=== PATIENT | male | born 1945 | race Caucasian/White ===

== ENCOUNTER 2017-08-21 17:46 | Inpatient (IN) | payer MEDICARE, BC ==
[2017-08-21] MEDS ORDERED: Ondansetron 4 MG/2 ML SDV IVPUSH ONE (17:51)
[2017-08-21] MEDS ORDERED: Famotidine 20 MG/2 ML SDV IVPUSH ONE (17:51)
[2017-08-21] MEDS ORDERED: Pantoprazole 40 MG Vial IVPUSH ONE (17:51)
--- NOTE | 2017-08-21 17:51 | EDM.PDOC ---
ED HPI GENERAL MEDICAL PROBLEM - General Chief Complaint: Gastrointestinal Problem Stated Complaint: Nauea/vomiting, fever Time Seen by Provider: 08/21/17 17:51 Source of Information: Reports: Patient, EMS, EMS Notes Reviewed, Family () , Correction Records (Limited), Old Records ([facility] chart/EMR) History Limitations: Reports: Altered Mental Status - History of Present Illness INITIAL COMMENTS - FREE TEXT/NARRATIVE: Patient was brought to the emergency room via basic ambulance transfer from [facility] for evaluation of progressive nausea and fever since about 09:30 hours this morning. Patient apparently had 1-1/2 tablets of Tylenol prior to arrival with large emesis in route. The patient is an extremely poor historian secondary to his previous CVA and organic brain syndrome. Patient did have some minor exacerbation of his chronic headaches earlier this morning, however this was resolved with earlier Tylenol. He denies any pain at this time. Apparent normal bowel movement earlier this morning by his history. Only limited records from [place] [facility] available. The patient denies any chest pain/ pressure, heart flutter, orthostasis, orthopnea, diaphoresis, paresthesias, recent decreased exercise tolerance, or any other anginal-type symptoms. No recent history of abdominal pain, heartburn, diarrhea, melena, gross hematochezia, or any food intolerance, including fatty foods, etc.. The patient also denies any recent aspiration, cough, wheezing, dyspnea, etc.. No history of current headaches, visual changes, diplopia, change in mental status, or other change in neurological status with stable left hemiparesis at this time. Symptoms started shortly after physical therapy this morning with no history of fall or injury. Onset: Today, Gradual Onset Date: 08/21/17 Onset Time: 09:30 Duration: Getting Worse, Intermittent Location: Reports: Other (No pain) Improves with: Reports: None Worsens with: Reports: None Context: Reports: Other (As above). Denies: Sick Contact, Trauma Associated Symptoms: Reports: Confusion (Stable chronic), Fever/Chills, Headaches (Earlier today as above), Nausea/Vomiting, Weakness (Stable chronic left hemiparesis). Denies: Chest Pain, Cough, cough w sputum, Diaphoresis, Loss of Appetite, Malaise, Seizure, Shortness of Breath, Syncope Treatments CHIEF MATE: Reports: Acetaminophen - Related Data Allergies Allergy/AdvReac Type Severity Reaction Status Date / Time Penicillins Allergy Cannot Verified 08/21/17 19:05 Remember povidone-iodine Allergy Cannot Verified 08/21/17 19:05 [From Betadine] Remember soap [From Betadine] Allergy Cannot Verified 08/21/17 19:05 Remember tramadol Allergy Cannot Verified 08/21/17 19:05 Remember Home Meds: Home Meds Acetaminophen 650 mg PO Q4H PRN 08/21/17 [History] Acetaminophen [Tylenol] 650 mg PO BID@,18 08/21/17 [History] Aspirin [Ecotrin] 325 mg PO DAILY 08/21/17 [History] Dextran 70/Hypromellose [Artificial Tears] 2 drop EYEBOTH QID PRN 08/21/17 [ History] Donepezil HCl [Aricept] 10 mg PO DAILY 08/21/17 [History] LORazepam [Ativan] 0.5 mg IM DAILY PRN 08/21/17 [History] Lisinopril 10 mg PO DAILY 08/21/17 [History] Loratadine [Claritin] 10 mg PO DAILY 08/21/17 [History] Menthol/Zinc Oxide [Calmoseptine] 1 applic TOP BID PRN 08/21/17 [History] Miconazole Nitrate [Athlete's Foot] 1 applic TOP BID PRN 08/21/17 [History] Multivitamin [Daily Multiple Vitamin] 1 tab PO DAILY 08/21/17 [History] OXcarbazepine [Trileptal] 450 mg PO BID@,08/21/17 [History] Trolamine Salicylate [Asper-Flex] 1 applic TOP Q4H PRN 08/21/17 [History] atorvaSTATin [Lipitor] 10 mg PO DAILY@1800 08/21/17 [History] levETIRAcetam [Keppra] 1,500 mg PO BID@,08/21/17 [History] Past Medical History HEENT History: Reports: Allergic Rhinitis, Cataract, Impaired Vision, Other ( See Below). Denies: Glaucoma, Hard of Hearing, Macular Degeneration, Retinal Detachment Other HEENT History: Dry eye syndrome. Patient wears glasses. Nasal fracture as below. Cardiovascular History: Reports: High Cholesterol, Hypertension, Other (See Below). Denies: Afib, Aneurysm, Arrhythmia, Blood Clots/VTE/DVT, Bypass, CAD, Heart Failure, Heart Murmur, LA, Pacemaker, PTCA, PVD, Stents, Syncope Other Cardiovascular History: Mixed hyperlipidemia Respiratory History: Reports: Bronchitis, Recurrent, COPD, Intubation, Previous , Pulmonary Fibrosis. Denies: Asthma, PE, Pneumothorax, Sleep Apnea, TB Gastrointestinal History: Reports: Colon Polyp, Gastritis, GERD, Hiatal Hernia, Other (See Below). Denies: Bowel Obstruction, Celiac Disease, Cholelithiasis, Chronic Constipation, Chronic Diarrhea, Diverticulosis, Fecal Incontinence, GI Bleed, Hepatitis, Inflammatory Bowel Disease, Irritable Bowel Syndrome, Jaundice , Pancreatitis, PUD Other Gastrointestinal History: Tubular adenoma in the sigmoid colon area esophagitis Genitourinary History: Reports: BPH, Chronic Renal Insuffiency, UTI, Recurrent. Denies: Acute Renal Failure, Renal Calculus, STD, Urinary Incontinence Musculoskeletal History: Reports: Arthritis, Back Pain, Chronic, Fracture, Osteoarthritis, Other (See Below). Denies: Amputation, Gout, Neck Pain, Chronic , Osteoporosis, RA, SLE Other Musculoskeletal History: Nasal fracture in the Neurological History: Reports: Alzheimers Disease, Brain Injury, CVA, Seizure, Other (See Below). Denies: Cerebral Aneurysms, Concussion, Headaches, Chronic, Head Trauma, Migraines, MS, Neuropathy, Diabetic, Neuropathy, Peripheral, Parkinson's, Speech Problems, TIA, Vertigo Other Neuro History: Postoperative right-sided CVA with subdural hematomas and secondary hydrocephalus with chronic left hemiparesis including the facial region requiring leg brace therapy after shunt placement for hydrocephalus in 2004 as below. Grand mal seizure disorder secondary to hydrocephalus and CVA in 2005. 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 Psychiatric History: Reports: Alzheimers Disease, Anxiety, Dementia, Depression. Denies: Abuse, Victim of, ADD, ADHD, Addiction, Psych Hospitalization(s), PTSD, Suicide Attempt, Suicidal Ideation Endocrine/Metabolic History: Denies: Diabetes, Type I, Diabetes, Type II, Diabetes Mellitus, Type 3c, Hypothyroidism, IDDM, Osteoporosis Hematologic History: Denies: Anemia, Blood Transfusion(s), Iron Deficiency Immunologic History: Reports: None. Denies: AIDS, HIV, SLE Oncologic (Cancer) History: Reports: None. Denies: Basal Cell Carcinoma, Brain , Colon, Hodgkin's Lymphoma, Leukemia, Lymphoma, Malignant Melanoma, Non-Hodgkin 's Lymphoma, Prostate, Squamous Cell Carcinoma Dermatologic History: Reports: Other (See Below). Denies: Eczema, Psoriasis Other Dermatologic History: Recurrent tinea corporis - Infectious Disease History Infectious Disease History: Reports: Measles, MRSA, Mumps, Other (See Below). Denies: C-Difficile, Meningitis, Pertussis (Whooping Cough), Shingles Other Infectious Disease History: Patient is uncertain about childhood illnesses. History of MRSA of the left foot in 2017 - Past Surgical History Head Surgeries/Procedures: Reports: Shunt Other Head Surgeries/Procedures: Shunt Placement for hydrocephalus in 2004 with postoperative complications as above HEENT Surgical History: Reports: Adenoidectomy, Naso-Sinus Surgery, Oral Surgery , Tonsillectomy, Other (See Below). Denies: Cataract Surgery, Eye Surgery, Laser Surgery, LASIK, Myringotomy w Tube(s) Other HEENT Surgeries/Procedures: Unknown type of nasal sinus surgery in the Cardiovascular Surgical History: Reports: None. Denies: Varicose Respiratory Surgical History: Reports: None. Denies: Thoracentesis GI Surgical History: Reports: Appendectomy, Colonoscopy, Polypectomy, Other ( See Below). Denies: Cholecystectomy, EGD, Hernia, Abdominal, Hernia, Inguinal, Hernia Repair/Other Other GI Surgeries/Procedures: Appendectomy at about age 17. Colonoscopy in the excision of tubular adenoma from the sigmoid colon Male Surgical History: Reports: Circumcision, Vasectomy, Other (See Below). Denies: TURP-Transurethral Resection of Prostate Other Male Surgeries/Procedures: Circumcision as an . Vasectomy in about 1976 Endocrine Surgical History: Denies: Thyroid Biopsy Neurological Surgical History: Reports: None. Denies: C-Spine, Discectomy, Laminectomy, Lumbar Spine, Sacral Spine, Spinal Fusion, Vertebroplasty Musculoskeletal Surgical History: Reports: None, Arthroscopic Knee, Arthroscopic Procedure, Other (See Below). Denies: Carpal Tunnel, Ganglion Cyst , Joint Replacement, ORIF, Shoulder Surgery Other Musculoskeletal Surgeries/Procedures:: Bilateral knee arthroscopic repair Oncologic Surgical History: Reports: None Dermatological Surgical History: Reports: Other (See Below) Other Dermatological Surgeries/Procedures: Facial reconstruction secondary to chainsaw injury - Past Imaging History Past Imaging History: Reports: CAT Scan (CT of the head on 09/03/11), EEG (), MRA (As below), MRI (MRI and MRA of the brain on 11/20/11), Venous Doppler ( Venous Doppler study of the right leg on 02/06/16 with additional evaluation of the left leg on 07/12/16) Social & Family History - Family History Family Medical History: Unobtainable Cardiac: Reports: CAD, LA, Other (See Below) Other Cardiac Family History: Father with LA in his 60s Neurological: Reports: Other (See Below) Other Neurological Family History: Brother from meningitis at age 18 - Tobacco Use Smoking Status *Q: Former Smoker Tobacco Use Within Last Twelve Months: Cigarettes Years of Tobacco use: 50 Packs/Tins Daily: 2 Used Tobacco, but Quit: No Month/Year Tobacco Last Used: April 2017 Smoking Cessation Information Provided To Patient: No Second Hand Smoke Exposure: Yes Source of Second Hand Smoke Exposure: Previously from , however now in a [place] [facility] Second Hand Smoke Education Provided: No - Caffeine Use Caffeine Use: Reports: Soda. Denies: Coffee, Energy Drinks, Tea - Alcohol Use Alcohol Use History: Yes Days Per Week of Alcohol Use: 0 (Problems with alcohol abuse between 1985 and 2004) Number of Drinks Per Day Comment: No current use of alcohol in [place] [facility]. 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 ED EXAM, GI/ABD - Physical Exam Exam: See Below Exam Limited By: No Limitations General Appearance: Alert, WD/WN, No Apparent Distress Eyes: Bilateral: Normal Appearance (No nystagmus), EOMI (PERRLA) Ears: Normal External Exam, Normal Canal, Hearing Grossly Normal (Mild bilateral presbycusis), Normal TMs Nose: Normal Mucosa, No Blood, Nasal Deformity (Secondary to previous fracture) , Clear Rhinorrhea (Mild bilateral) Throat/Mouth: Normal Lips, Normal Gums, Normal Oropharynx, Normal Voice, No Airway Compromise. No: Normal Teeth (Multiple missing teeth including caries and broken teeth into the gumline with no evidence of abscess or drainage), Dysphagia, Perioral Cyanosis Head: Atraumatic, Normocephalic. No: Facial Swelling, Facial Tenderness, Sinus Tenderness Neck: Normal Inspection, Supple, Non-Tender, Full Range of Motion, Carotid Bruit (Mild bilateral carotid bruits). No: Lymphadenopathy (L), Lymphadenopathy (R), Thyromegaly Respiratory/Chest: No Respiratory Distress, No Accessory Muscle Use, Chest Non- Tender, Rales (Mild bilateral basilar rales). No: Respiratory Distress, Rhonchi , Wheezing, Pleural Rub, Retractions Cardiovascular: Normal Peripheral Pulses, Regular Rate, Rhythm, No Edema, No Gallop, No JVD, No Murmur, No Rub. No: Gallop/S3, Gallop/S4, Friction Rub GI/Abdominal Exam: Non-Tender, No Organomegaly, No Abnormal Bruit, No Mass, Pelvis Stable, Distended (Mild), Abnormal Bowel Sounds (Moderate diffuse increased bowel sounds somewhat high-pitched in nature). No: Guarding, Rebound , Hernia (Male) Exam: Deferred Rectal (Males) Exam: Normal Rectal Tone, Prostate Normal, BPH (Mild), Heme - Stool. No: Black Stool, Bloody Stool, Fecal Impaction, Mass Back Exam: Normal Inspection, Full Range of Motion, Other (Mild scoliosis). No : CVA Tenderness (L), CVA Tenderness (R), Muscle Spasm Extremities: Normal Inspection, Normal Range of Motion, Non-Tender, No Pedal Edema, Normal Capillary Refill, Other (Left dorsal leg brace). No: Anup's Sign Neurological: Alert, Confused (Stable organic brain syndrome), Sensory/Motor Deficit (Stable left hemiparesis including in the facial region). No: Normal Gait Psychiatric: Normal Affect, Normal Mood Skin Exam: Warm, Dry, Intact, Normal Color, No Rash. No: Diaphoretic, Wound/ Incision Lymphatic: No Adenopathy Course - Vital Signs Last Recorded V/S: Last Vital Signs Temp 38.8 C H 08/21/17 17:46 Pulse 80 08/21/17 19:15 Resp 20 08/21/17 19:15 BP 154/70 H 08/21/17 19:15 Pulse Ox 97 08/21/17 19:15 Vital Signs - 24 hr 08/21/17 08/21/17 08/21/17 17:46 18:45 19:00 Temperature [ 38.8 C H Temporal] Pulse, 92 90 85 Peripheral [ Left Pulse Oximetry] Respiratory 29 H 20 20 Rate Blood Pressure 161/76 H [Left Upper Arm ] Blood Pressure 114/65 163/72 H [Right Upper Arm] O2 Sat by Pulse 97 96 96 Oximetry 08/21/17 19:15 Temperature [ Temporal] Pulse, 80 Peripheral [ Left Pulse Oximetry] Respiratory 20 Rate Blood Pressure 154/70 H [Left Upper Arm ] Blood Pressure [Right Upper Arm] O2 Sat by Pulse 97 Oximetry - Orders/Labs/Meds Orders: Active Orders 24 hr Category Date Time Status Cardiac Monitoring [RC] . DIRECTED Care 08/21/17 17:50 Active Peripheral IV Care [RC] . DIRECTED Care 08/21/17 17:52 Active Nothing Per Oral Diet [DIET] Diet 08/21/17 Breakfast Active Abdomen Series w Chest 1V [CR] Stat Exams 08/21/17 17:51 Taken CULTURE BLOOD [BC] Stat Lab 08/21/17 18:35 Received CULTURE BLOOD [BC] Stat Lab 08/21/17 18:50 Received CULTURE URINE [RM] Stat Lab 08/21/17 17:51 Ordered H PYLORI STOOL ANTIGEN [MREF] Urgent Lab 08/21/17 17:51 Ordered URINALYSIS W/MICROSCOPIC [UA W/MICROSCOPIC] [URIN] Lab 08/21/17 17:53 Ordered Routine Ciprofloxacin in D5W [Cipro in D5W 200 MG/100 ML] 200 Med 08/21/17 20:00 Active mg Premix Bag 1 bag IV Q12HR Sodium Chloride 0.9% [Saline Flush] Med 08/21/17 17:51 Active 10 ml FLUSH ASDIRECTED PRN metroNIDAZOLE/Normal Saline [Flagyl 500 MG in NS 100 ML Med 08/21/17 18:00 Active ] 500 mg Premix Bag 1 bag IV Q8H Blood Culture x2 Reflex Set [OM.PC] Urgent Oth 08/21/17 17:51 Ordered Obtain Past Medical Record [OM.PC] Urgent Oth 08/21/17 17:51 Active Peripheral IV Insertion Adult [OM.PC] Stat Oth 08/21/17 17:51 Ordered Resuscitation Status Stat Resus Stat 08/21/17 17:51 Ordered Medication Orders Ciprofloxacin/Dextrose 200 mg/ (Premix) 100 mls @ 100 mls/hr IV Q12HR OUMOU Metronidazole 500 mg/ Premix 100 mls @ 100 mls/hr IV Q8H OUMOU Last Admin: 08/21/17 18:52 Dose: 100 mls/hr Sodium Chloride (Saline Flush) 10 ml FLUSH ASDIRECTED PRN PRN Reason: Keep Vein Open Last Admin: 08/21/17 18:53 Dose: 10 ml Labs: Laboratory Tests 08/21/17 08/21/17 08/21/17 Range/Units 18:35 18:35 18:35 WBC 12.2 H (4.0-10.2) K/uL RBC 5.00 (4.33-5.41) M/uL Hgb 15.8 (13.1-16.8) g/dL Hct 46.1 (39.0-49.0) % MCV 92.2 (84.0-98.0) fL MCH 31.6 (28.2-33.3) pg MCHC 34.3 (31.7-36.0) g/dL RDW 13.1 (11.2-14.1) % Plt Count 290 (150-350) K/uL Neut % (Auto) 78.0 (45.0-80.0) % Lymph % (Auto) 12.2 (10.0-50.0) % [place] % (Auto) 9.3 (2.0-14.0) % Eos % (Auto) 0.2 (0.0-5.0) % Baso % (Auto) 0.3 (0.0-2.0) % Neut # (Auto) 9.54 H (1.40-7.00) K/uL Lymph # (Auto) 1.49 (0.50-3.50) K/uL [place] # (Auto) 1.14 H (0.00-1.00) K/uL Eos # (Auto) 0.02 (0.00-0.50) K/uL Baso # (Auto) 0.04 (0.00-0.20) K/uL PT 11.1 (9.8-11.7) SEC INR 1.0 APTT 28.9 (22.1-29.8) SEC Sodium (136-145) mmol/L Potassium (3.5-5.1) mmol/L Chloride (98-107) mmol/L Carbon Dioxide (21.0-32.0) mmol/L BUN (7-18) mg/dL Creatinine (0.51-1.17) mg/dL Est Cr Clr Drug Dosing Estimated GFR (MDRD) mL/min Glucose (74-106) mg/dL Lactic Acid (0.4-2.0) mmol/L Uric Acid (2.6-7.2) mg/dL Calcium (8.5-10.1) mg/dL Magnesium (1.8-2.4) mg/dL Total Bilirubin (0.2-1.0) mg/dL AST (15-37) U/L ALT (12-78) U/L Alkaline Phosphatase (46-116) IU/L Total Protein (6.4-8.2) g/dL Albumin (3.4-5.0) g/dL Amylase 63 (25-115) U/L Lipase (73-393) U/L 08/21/17 08/21/17 Range/Units 18:35 18:35 WBC (4.0-10.2) K/uL RBC (4.33-5.41) M/uL Hgb (13.1-16.8) g/dL Hct (39.0-49.0) % MCV (84.0-98.0) fL MCH (28.2-33.3) pg MCHC (31.7-36.0) g/dL RDW (11.2-14.1) % Plt Count (150-350) K/uL Neut % (Auto) (45.0-80.0) % Lymph % (Auto) (10.0-50.0) % [place] % (Auto) (2.0-14.0) % Eos % (Auto) (0.0-5.0) % Baso % (Auto) (0.0-2.0) % Neut # (Auto) (1.40-7.00) K/uL Lymph # (Auto) (0.50-3.50) K/uL [place] # (Auto) (0.00-1.00) K/uL Eos # (Auto) (0.00-0.50) K/uL Baso # (Auto) (0.00-0.20) K/uL PT (9.8-11.7) SEC INR APTT (22.1-29.8) SEC Sodium 140 (136-145) mmol/L Potassium 4.0 (3.5-5.1) mmol/L Chloride 102 (98-107) mmol/L Carbon Dioxide 28.5 (21.0-32.0) mmol/L BUN 12 (7-18) mg/dL Creatinine 1.03 (0.51-1.17) mg/dL Est Cr Clr Drug Dosing TNP Estimated GFR (MDRD) > 60 mL/min Glucose 118 H (74-106) mg/dL Lactic Acid 2.0 (0.4-2.0) mmol/L Uric Acid 4.6 (2.6-7.2) mg/dL Calcium 9.5 (8.5-10.1) mg/dL Magnesium 1.7 L (1.8-2.4) mg/dL Total Bilirubin 0.4 (0.2-1.0) mg/dL AST 64 H (15-37) U/L ALT 111 H (12-78) U/L Alkaline Phosphatase 250 H (46-116) IU/L Total Protein 8.2 (6.4-8.2) g/dL Albumin 4.0 (3.4-5.0) g/dL Amylase (25-115) U/L Lipase 95 (73-393) U/L Blood cultures 2 collected Urine specimen not yet collected in the emergency room Meds: Medications Generic Name Dose Route Start Last Admin Trade Name Freq PRN Reason Stop Dose Admin Ciprofloxacin/Dextrose 200 mg/ 100 mls @ 100 mls/hr 08/21/17 20:00 Premix IV Q12HR OUMOU Metronidazole 500 mg/ Premix 100 mls @ 100 mls/hr 08/21/17 18:00 08/21/17 18: 52 IV 100 mls/hr Q8H OUMOU Administration Sodium Chloride 10 ml 08/21/17 17:51 08/21/17 18:53 Saline Flush FLUSH 10 ml ASDIRECTED PRN Administration Keep Vein Open Discontinued Medications Generic Name Dose Route Start Last Admin Trade Name Devaughn PRN Reason Stop Dose Admin Acetaminophen 650 mg 08/21/17 18:38 08/21/17 18:52 Tylenol PO 08/21/17 18:39 650 mg NOW ONE Administration Famotidine 40 mg 08/21/17 17:51 08/21/17 18:52 Pepcid IVPUSH 08/21/17 17:52 40 mg ONETIME ONE Administration Metronidazole Confirm 08/21/17 18:48 08/21/17 18:56 Flagyl 500 Mg In Ns 100 Ml Administered 08/21/17 18:49 Not Given Dose 100 mls @ as directed .ROUTE .STK-MED ONE Ondansetron HCl 4 mg 08/21/17 17:51 08/21/17 18:52 Zofran IVPUSH 08/21/17 17:52 4 mg ONETIME ONE Administration Pantoprazole Sodium 40 mg 08/21/17 17:51 08/21/17 18:52 Protonix Iv IVPUSH 08/21/17 17:52 40 mg ONETIME ONE Administration - Radiology Interpretation Free Text/Narrative:: Acute abdominal x-rays somewhat suboptimal in nature with evidence of moderate increased bowel gaseous pattern particularly in the colon with threatening borderline obstruction but no significant fluid levels, free air, etc. Moderate diffuse stool. Moderately elevated right hemidiaphragm with mild cardiomegaly and moderate COPD and pulmonary fibrotic changes. Questionable right middle lobe atelectasis versus mild pulmonary infiltrates.CHF, pneumothorax, etc. Moderate osteophytic changes with mild scoliosis noted. Mild prominence of the proximal aortic arch. In [employer]ension Coordinator showed normal sinus rhythm in the 80s and 90s with no ectopy or arrhythmia Departure - Departure Time of Disposition: 20:00 Disposition: Admitted As Inpatient 67 Condition: Fair Clinical Impression: Hypomagnesemia, Elevated LFTs, Organic brain syndrome (chronic), Hyperglycemia , Mixed anxiety depressive disorder, Peptic reflux disease, Caries, History of MRSA infection Nausea and vomiting Qualifiers: Vomiting type: unspecified Vomiting Intractability: non-intractable Qualified Code(s): R11.2 - Nausea with vomiting, unspecified COPD (chronic obstructive pulmonary disease) Qualifiers: COPD type: COPD with acute lower respiratory infection Qualified Code(s): J44.0 - Chronic obstructive pulmonary disease with acute lower respiratory infection Hemiparesis Qualifiers: Hemiparesis etiology: late effect of cerebrovascular disease Cerebrovascular disease type: nontraumatic intracerebral hemorrhage Hemiparesis laterality: right dominant side Qualified Code(s): I69.151 - Hemiplegia and hemiparesis following nontraumatic intracerebral hemorrhage affecting right dominant side Osteoarthritis Qualifiers: Osteoarthritis location: multiple joints Osteoarthritis type: primary Qualified Code(s): M15.0 - Primary generalized (osteo)arthritis Hypertension Qualifiers: Hypertension type: essential hypertension Qualified Code(s): I10 - Essential ( primary) hypertension Hyperlipidemia Qualifiers: Hyperlipidemia type: mixed hyperlipidemia Qualified Code(s): E78.2 - Mixed hyperlipidemia - Discharge Information - Problem List & Annotations (1) COPD (chronic obstructive pulmonary disease) SNOMED Code(s): 08991856 Code(s): J44.9 - CHRONIC OBSTRUCTIVE PULMONARY DISEASE, UNSPECIFIED Status : Chronic Priority: Medium Current Visit: Yes Annotation/Comment:: Stable by patient history with no current medical therapy, however nebulizer treatments during this hospitalization secondary to possible borderline aspiration pneumonia Qualifiers: COPD type: COPD with acute lower respiratory infection Qualified Code(s): J44.0 - Chronic obstructive pulmonary disease with acute lower respiratory infection (2) Elevated LFTs SNOMED Code(s): 135769915, 298860995 Code(s): R79.89 - OTHER SPECIFIED ABNORMAL FINDINGS OF BLOOD CHEMISTRY Status: Chronic Priority: Medium Current Visit: Yes Annotation/Comment:: Possibly secondary to fatty liver and/or previous history of alcohol abuse. Further workup depending on his clinical course (3) Hemiparesis SNOMED Code(s): 90440853 Code(s): G81.90 - HEMIPLEGIA, UNSPECIFIED AFFECTING UNSPECIFIED SIDE Status : Chronic Priority: Medium Current Visit: Yes Annotation/Comment:: Distant CVA with chronic left hemiparesis and previous as above. No change in neurological status with previous history of recurrent falls, etc. Qualifiers: Hemiparesis etiology: late effect of cerebrovascular disease Cerebrovascular disease type: nontraumatic intracerebral hemorrhage Hemiparesis laterality: right dominant side Qualified Code(s): I69.151 - Hemiplegia and hemiparesis following nontraumatic intracerebral hemorrhage affecting right dominant side (4) Hyperglycemia SNOMED Code(s): 34976542 Code(s): R73.9 - HYPERGLYCEMIA, UNSPECIFIED Status: Acute Priority: Medium Current Visit: Yes Onset Date: 08/21/17 Annotation/Comment:: Glycosylated hemoglobin in a.m. (5) Hyperlipidemia SNOMED Code(s): 75488771 Code(s): E78.5 - HYPERLIPIDEMIA, UNSPECIFIED Status: Chronic Priority: Medium Current Visit: Yes Annotation/Comment:: Lipid panel in a.m. Qualifiers: Hyperlipidemia type: mixed hyperlipidemia Qualified Code(s): E78.2 - Mixed hyperlipidemia (6) Hypertension SNOMED Code(s): 48559709 Code(s): I10 - ESSENTIAL (PRIMARY) HYPERTENSION Status: Chronic Priority : Medium Current Visit: Yes Annotation/Comment:: Pressures under good control in the emergency room Qualifiers: Hypertension type: essential hypertension Qualified Code(s): I10 - Essential (primary) hypertension (7) Hypomagnesemia SNOMED Code(s): 101949217 Code(s): E83.42 - HYPOMAGNESEMIA Status: Acute Priority: Medium Current Visit: Yes Onset Date: 08/21/17 Annotation/Comment:: Consider using oxide supplement, however patient currently nothing by mouth (8) Mixed anxiety depressive disorder SNOMED Code(s): 452356635 Code(s): F41.8 - OTHER SPECIFIED ANXIETY DISORDERS Status: Chronic Priority: Medium Current Visit: Yes Annotation/Comment:: Stable by patient history. Note history of alcohol abuse in the past (9) Nausea and vomiting SNOMED Code(s): 76373492 Code(s): R11.2 - NAUSEA WITH VOMITING, UNSPECIFIED Status: Acute Priority : High Current Visit: Yes Onset Date: 08/21/17 Annotation/Comment:: Possibility of threatening bowel obstruction with IV Cipro and IV Flagyl initiated in the emergency room. Blood cultures 2 were collected.. Abdominal assessments with vitals. Repeat x-rays and blood work in the a.m. with consideration of CT scan of the abdomen and pelvis depending on his clinical course. Surgical consultation as needed. Consider NG tube therapy, if patient does not respond to the above treatments. Note LFTs elevation as above with amylase and lipase normal at this time. 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 Stable by history (11) Osteoarthritis SNOMED Code(s): 351250904 Code(s): M19.90 - UNSPECIFIED OSTEOARTHRITIS, UNSPECIFIED SITE Status: Chronic Priority: Medium Current Visit: Yes Annotation/Comment:: Stable by history Qualifiers: Osteoarthritis location: multiple joints Osteoarthritis type: primary Qualified Code(s): M15.0 - Primary generalized (osteo)arthritis (12) Peptic reflux disease SNOMED Code(s): 121281103 Code(s): K21.9 - GASTRO-ESOPHAGEAL REFLUX DISEASE WITHOUT ESOPHAGITIS Status: Chronic Priority: Medium Current Visit: Yes Annotation/Comment:: Stable by history with high-dose IV Pepcid and IV Protonix given in the emergency room (13) Caries SNOMED Code(s): 85282956 Code(s): K02.9 - DENTAL CARIES, UNSPECIFIED Status: Chronic Priority: Medium Current Visit: Yes Annotation/Comment:: Dental evaluation and treatment advisable (14) History of MRSA infection SNOMED Code(s): 739527706, 140922211 Code(s): Z86.14 - PERSONAL HISTORY OF METHICILLIN RESIS STAPH INFECTION Status: Chronic Current Visit: Yes Annotation/Comment:: History of MRSA infection with current [place] [facility]. Standard MRSA culture orders on admission - Problem List Review Problem List Initiated/Reviewed/Updated: Yes - My Orders Last 24 Hours: My Active Orders 08/21/17 17:50 Cardiac Monitoring [RC] . DIRECTED 08/21/17 17:51 Abdomen Series w Chest 1V [CR] Stat CULTURE URINE [RM] Stat H PYLORI STOOL ANTIGEN [MREF] Urgent Sodium Chloride 0.9% [Saline Flush] 10 ml FLUSH ASDIRECTED PRN Blood Culture x2 Reflex Set [OM.PC] Urgent Obtain Past Medical Record [OM.PC] Urgent Peripheral IV Insertion Adult [OM.PC] Stat Resuscitation Status Stat 08/21/17 17:52 Peripheral IV Care [RC] . DIRECTED 08/21/17 17:53 URINALYSIS W/MICROSCOPIC [UA W/MICROSCOPIC] [URIN] Routine 08/21/17 18:00 metroNIDAZOLE/Normal Saline [Flagyl 500 MG in NS 100 ML] 500 mg Premix Bag 1 bag IV Q8H 08/21/17 18:35 CULTURE BLOOD [BC] Stat 08/21/17 18:50 CULTURE BLOOD [BC] Stat 08/21/17 20:00 Ciprofloxacin in D5W [Cipro in D5W 200 MG/100 ML] 200 mg Premix Bag 1 bag IV Q12HR 08/21/17 Breakfast Nothing Per Oral Diet [DIET] - Assessment/Plan Last 24 Hours: My Active Orders 08/21/17 17:50 Cardiac Monitoring [RC] . DIRECTED 08/21/17 17:51 Abdomen Series w Chest 1V [CR] Stat CULTURE URINE [RM] Stat H PYLORI STOOL ANTIGEN [MREF] Urgent Sodium Chloride 0.9% [Saline Flush] 10 ml FLUSH ASDIRECTED PRN Blood Culture x2 Reflex Set [OM.PC] Urgent Obtain Past Medical Record [OM.PC] Urgent Peripheral IV Insertion Adult [OM.PC] Stat Resuscitation Status Stat 08/21/17 17:52 Peripheral IV Care [RC] . DIRECTED 08/21/17 17:53 URINALYSIS W/MICROSCOPIC [UA W/MICROSCOPIC] [URIN] Routine 08/21/17 18:00 metroNIDAZOLE/Normal Saline [Flagyl 500 MG in NS 100 ML] 500 mg Premix Bag 1 bag IV Q8H 08/21/17 18:35 CULTURE BLOOD [BC] Stat 08/21/17 18:50 CULTURE BLOOD [BC] Stat 08/21/17 20:00 Ciprofloxacin in D5W [Cipro in D5W 200 MG/100 ML] 200 mg Premix Bag 1 bag IV Q12HR 08/21/17 Breakfast Nothing Per Oral Diet [DIET] Assessment:: As above. Plan: As above. Extensive precautions were given to the patient and his , who are in agreement with the treatment plan. The patient will require about 3-4 days of inpatient/acute care secondary to multiple health problems as above. [facility] assumes care in the a.m.
[2017-08-21] MEDS ORDERED: metroNIDAZOLE/Normal Saline 500 MG in Premix Bag 1 BAG IV SCH (18:00)
[2017-08-21] MEDS ORDERED: Acetaminophen 325 MG Tab PO ONE (18:38)
[2017-08-21] MEDS ORDERED: metroNIDAZOLE/Normal Saline 100 ML ONE (18:48)
[2017-08-21] MEDS: Sodium Chloride 0.9% 10 ML Syringe FLUSH PRN ×2 (18:53→21:09)
[2017-08-21 18:55] LABS: CHLORIDE,CL 102 mmol/L (98-107); SODIUM,NA 140 mmol/L (136-145)
[2017-08-21] MEDS ORDERED: Temazepam 15 MG Cap PO PRN (20:00)
[2017-08-21] MEDS ORDERED: LORazepam Conc Solution 2 MG/ML 30 ML Bottle PO PRN (20:08)
[2017-08-21] MEDS ORDERED: Trolamine Salicylate/Aloe Vera 10% Crm 85 GM Tube TOP PRN (20:08)
[2017-08-21] MEDS ORDERED: MICONAZOLE NITRATE TOP PRN (20:08)
[2017-08-21] MEDS ORDERED: Ondansetron 4 MG/2 ML SDV IVPUSH PRN (20:12)
[2017-08-21] MEDS ORDERED: Polyvinyl Alcohol 1.4% Ophth Soln 15 ML Bottle EYEBOTH PRN (20:15)
[2017-08-21] MEDS ORDERED: Albuterol/Ipratropium 3.0-0.5 MG/3 ML Neb Soln NEB PRN (20:17)
[2017-08-21] MEDS ORDERED: Albuterol 0.083% 2.5 MG/3 ML Neb Soln INH PRN (20:17)
[2017-08-21] MEDS ORDERED: Menthol/Zinc Oxide Ointment 113 GM Tube TOP PRN (20:30)
[2017-08-21] MEDS: Ciprofloxacin in D5W 200 MG in Premix Bag 1 BAG IV SCH ×2 (21:05)
[2017-08-21] MEDS ORDERED: OXcarbazepine 300 MG Tab PO ONE (21:15)
[2017-08-21] MEDS ORDERED: levETIRAcetam 500 MG Tab PO ONE (21:15)
[2017-08-21] MEDS: Acetaminophen 325 MG Tab PO PRN (23:04)
[2017-08-21] MEDS: D5 1/2 NS w/ 20 mEq/L KCl 1,000 ML IV SCH (23:04)
[2017-08-22] MEDS: metroNIDAZOLE/Normal Saline 500 MG in Premix Bag 1 BAG IV SCH ×3 (02:10→17:35)
[2017-08-22] MEDS: Sodium Chloride 0.9% 10 ML Syringe FLUSH PRN ×4 (02:12→20:10)
[2017-08-22] MEDS: Albuterol/Ipratropium 3.0-0.5 MG/3 ML Neb Soln NEB SCH ×4 (02:15→20:11)
[2017-08-22] MEDS: Pantoprazole 40 MG Vial IVPUSH SCH ×2 (07:59→20:04)
[2017-08-22] MEDS: Ciprofloxacin in D5W 200 MG in Premix Bag 1 BAG IV SCH ×4 (07:59→20:05)
[2017-08-22] MEDS: Acetaminophen 325 MG Tab PO SCH ×2 (08:00→17:34)
[2017-08-22] MEDS: OXcarbazepine 300 MG Tab PO SCH ×2 (08:01→17:35)
[2017-08-22] MEDS: Lisinopril 10 MG Tab PO SCH (08:02)
[2017-08-22] MEDS: levETIRAcetam 500 MG Tab PO SCH ×2 (08:03→17:34)
[2017-08-22] MEDS: Loratadine 10 MG Tab PO SCH (08:04)
[2017-08-22] MEDS: Donepezil 10 MG Tab PO SCH (08:04)
[2017-08-22] MEDS: Multivitamin Tab PO SCH (08:04)
[2017-08-22] MEDS: Aspirin 325 MG Tab.EC PO SCH (08:05)
[2017-08-22] MEDS: Sodium Chloride 0.9% 10 ML Syringe FLUSH SCH ×2 (08:06→20:10)
--- NOTE | 2017-08-22 14:40 | PCM.PN ---
- General Info Date of Service: 08/22/17 Functional Status: Reports: Pain Controlled - Review of Systems General: Reports: Weakness HEENT: Reports: No Symptoms Pulmonary: Reports: No Symptoms Cardiovascular: Reports: No Symptoms Gastrointestinal: Reports: No Symptoms Genitourinary: Reports: No Symptoms Musculoskeletal: Reports: No Symptoms Skin: Reports: No Symptoms Neurological: Reports: Confusion, Dizziness, Pre-Existing Deficit Psychiatric: Reports: Confusion - Patient Data Vitals - Most Recent: Last Vital Signs Temp 99.1 F 08/22/17 12:00 Pulse 69 08/22/17 12:00 Resp 18 08/22/17 12:00 BP 114/55 L 08/22/17 12:00 Pulse Ox 90 L 08/22/17 12:00 Weight - Most Recent: 241 lb 15.987 oz I&O - Last 24 Hours: Intake & Output 08/21/17 08/22/17 08/22/17 22:59 06:59 14:59 Intake Total 100 Output Total 400 500 Balance -400 -400 Lab Results Last 24 Hours: Laboratory Results - last 24 hr 08/21/17 08/21/17 08/21/17 Range/Units 18:35 18:35 18:35 WBC 12.2 H (4.0-10.2) K/uL RBC 5.00 (4.33-5.41) M/uL Hgb 15.8 (13.1-16.8) g/dL Hct 46.1 (39.0-49.0) % MCV 92.2 (84.0-98.0) fL MCH 31.6 (28.2-33.3) pg MCHC 34.3 (31.7-36.0) g/dL RDW 13.1 (11.2-14.1) % Plt Count 290 (150-350) K/uL Neut % (Auto) 78.0 (45.0-80.0) % Lymph % (Auto) 12.2 (10.0-50.0) % [place] % (Auto) 9.3 (2.0-14.0) % Eos % (Auto) 0.2 (0.0-5.0) % Baso % (Auto) 0.3 (0.0-2.0) % Neut # (Auto) 9.54 H (1.40-7.00) K/uL Lymph # (Auto) 1.49 (0.50-3.50) K/uL [place] # (Auto) 1.14 H (0.00-1.00) K/uL Eos # (Auto) 0.02 (0.00-0.50) K/uL Baso # (Auto) 0.04 (0.00-0.20) K/uL PT 11.1 (9.8-11.7) SEC INR 1.0 APTT 28.9 (22.1-29.8) SEC Sodium (136-145) mmol/L Potassium (3.5-5.1) mmol/L Chloride (98-107) mmol/L Carbon Dioxide (21.0-32.0) mmol/L BUN (7-18) mg/dL Creatinine (0.51-1.17) mg/dL Est Cr Clr Drug Dosing Estimated GFR (MDRD) mL/min Glucose (74-106) mg/dL Hemoglobin A1c (4.3-5.7) % Lactic Acid (0.4-2.0) mmol/L Uric Acid (2.6-7.2) mg/dL Calcium (8.5-10.1) mg/dL Magnesium (1.8-2.4) mg/dL Total Bilirubin (0.2-1.0) mg/dL AST (15-37) U/L ALT (12-78) U/L Alkaline Phosphatase (46-116) IU/L C-Reactive Protein (<=0.9) mg/dL Total Protein (6.4-8.2) g/dL Albumin (3.4-5.0) g/dL Triglycerides (30-150) mg/dL Cholesterol (100-200) mg/dL LDL Cholesterol, Calc (0-100) mg/dL HDL Cholesterol (40-60) mg/dL Amylase 63 (25-115) U/L Lipase (73-393) U/L Specimen Type Urine Color Urine Appearance Urine pH (5.0-9.0) Ur Specific [place] (1.005-1.030) Urine Protein (NEGATIVE) mg/dL Urine Glucose (UA) (NEGATIVE) mg/dL Urine Ketones (NEGATIVE) mg/dL Urine Occult Blood (NEGATIVE) Urine Nitrite (NEGATIVE) Urine Bilirubin (NEGATIVE) Urine Urobilinogen (0.2-1.0) E.U./dL Ur Leukocyte Esterase (NEGATIVE) Urine RBC /HPF Urine WBC /HPF Ur Epithelial Cells /LPF Urine Bacteria (NONE TO FEW) /HPF Urine Mucus (NEGATIVE) /LPF 08/21/17 08/21/17 08/21/17 Range/Units 18:35 18:35 18:35 WBC (4.0-10.2) K/uL RBC (4.33-5.41) M/uL Hgb (13.1-16.8) g/dL Hct (39.0-49.0) % MCV (84.0-98.0) fL MCH (28.2-33.3) pg MCHC (31.7-36.0) g/dL RDW (11.2-14.1) % Plt Count (150-350) K/uL Neut % (Auto) (45.0-80.0) % Lymph % (Auto) (10.0-50.0) % [place] % (Auto) (2.0-14.0) % Eos % (Auto) (0.0-5.0) % Baso % (Auto) (0.0-2.0) % Neut # (Auto) (1.40-7.00) K/uL Lymph # (Auto) (0.50-3.50) K/uL [place] # (Auto) (0.00-1.00) K/uL Eos # (Auto) (0.00-0.50) K/uL Baso # (Auto) (0.00-0.20) K/uL PT (9.8-11.7) SEC INR APTT (22.1-29.8) SEC Sodium 140 (136-145) mmol/L Potassium 4.0 (3.5-5.1) mmol/L Chloride 102 (98-107) mmol/L Carbon Dioxide 28.5 (21.0-32.0) mmol/L BUN 12 (7-18) mg/dL Creatinine 1.03 (0.51-1.17) mg/dL Est Cr Clr Drug Dosing TNP Estimated GFR (MDRD) > 60 mL/min Glucose 118 H (74-106) mg/dL Hemoglobin A1c (4.3-5.7) % Lactic Acid 2.0 (0.4-2.0) mmol/L Uric Acid 4.6 (2.6-7.2) mg/dL Calcium 9.5 (8.5-10.1) mg/dL Magnesium 1.7 L (1.8-2.4) mg/dL Total Bilirubin 0.4 (0.2-1.0) mg/dL AST 64 H (15-37) U/L ALT 111 H (12-78) U/L Alkaline Phosphatase 250 H (46-116) IU/L C-Reactive Protein 0.7 (<=0.9) mg/dL Total Protein 8.2 (6.4-8.2) g/dL Albumin 4.0 (3.4-5.0) g/dL Triglycerides (30-150) mg/dL Cholesterol (100-200) mg/dL LDL Cholesterol, Calc (0-100) mg/dL HDL Cholesterol (40-60) mg/dL Amylase (25-115) U/L Lipase 95 (73-393) U/L Specimen Type Urine Color Urine Appearance Urine pH (5.0-9.0) Ur Specific [place] (1.005-1.030) Urine Protein (NEGATIVE) mg/dL Urine Glucose (UA) (NEGATIVE) mg/dL Urine Ketones (NEGATIVE) mg/dL Urine Occult Blood (NEGATIVE) Urine Nitrite (NEGATIVE) Urine Bilirubin (NEGATIVE) Urine Urobilinogen (0.2-1.0) E.U./dL Ur Leukocyte Esterase (NEGATIVE) Urine RBC /HPF Urine WBC /HPF Ur Epithelial Cells /LPF Urine Bacteria (NONE TO FEW) /HPF Urine Mucus (NEGATIVE) /LPF 08/21/17 08/22/17 08/22/17 Range/Units 23:50 07:15 07:15 WBC 8.2 (4.0-10.2) K/uL RBC 4.26 L (4.33-5.41) M/uL Hgb 13.5 D (13.1-16.8) g/dL Hct 39.5 (39.0-49.0) % MCV 92.7 (84.0-98.0) fL MCH 31.7 (28.2-33.3) pg MCHC 34.2 (31.7-36.0) g/dL RDW 12.9 (11.2-14.1) % Plt Count 245 (150-350) K/uL Neut % (Auto) 60.8 (45.0-80.0) % Lymph % (Auto) 21.6 (10.0-50.0) % [place] % (Auto) 16.0 H (2.0-14.0) % Eos % (Auto) 1.2 (0.0-5.0) % Baso % (Auto) 0.4 (0.0-2.0) % Neut # (Auto) 4.99 (1.40-7.00) K/uL Lymph # (Auto) 1.77 (0.50-3.50) K/uL [place] # (Auto) 1.31 H (0.00-1.00) K/uL Eos # (Auto) 0.10 (0.00-0.50) K/uL Baso # (Auto) 0.03 (0.00-0.20) K/uL PT (9.8-11.7) SEC INR APTT (22.1-29.8) SEC Sodium (136-145) mmol/L Potassium (3.5-5.1) mmol/L Chloride (98-107) mmol/L Carbon Dioxide (21.0-32.0) mmol/L BUN (7-18) mg/dL Creatinine (0.51-1.17) mg/dL Est Cr Clr Drug Dosing Estimated GFR (MDRD) mL/min Glucose (74-106) mg/dL Hemoglobin A1c (4.3-5.7) % Lactic Acid (0.4-2.0) mmol/L Uric Acid (2.6-7.2) mg/dL Calcium (8.5-10.1) mg/dL Magnesium (1.8-2.4) mg/dL Total Bilirubin (0.2-1.0) mg/dL AST (15-37) U/L ALT (12-78) U/L Alkaline Phosphatase (46-116) IU/L C-Reactive Protein (<=0.9) mg/dL Total Protein (6.4-8.2) g/dL Albumin (3.4-5.0) g/dL Triglycerides (30-150) mg/dL Cholesterol (100-200) mg/dL LDL Cholesterol, Calc (0-100) mg/dL HDL Cholesterol (40-60) mg/dL Amylase (25-115) U/L Lipase (73-393) U/L Specimen Type Urincc Urine Color Dark yellow Urine Appearance Clear Urine pH 6.0 (5.0-9.0) Ur Specific [place] >= 1.030 (1.005-1.030) Urine Protein Trace H (NEGATIVE) mg/dL Urine Glucose (UA) Negative (NEGATIVE) mg/dL Urine Ketones Trace H (NEGATIVE) mg/dL Urine Occult Blood Moderate H (NEGATIVE) Urine Nitrite Negative (NEGATIVE) Urine Bilirubin Negative (NEGATIVE) Urine Urobilinogen 0.2 (0.2-1.0) E.U./dL Ur Leukocyte Esterase Negative (NEGATIVE) Urine RBC 20-30 H /HPF Urine WBC 5-10 H /HPF Ur Epithelial Cells Rare /LPF Urine Bacteria Few (NONE TO FEW) /HPF Urine Mucus Few H (NEGATIVE) /LPF 08/22/17 08/22/17 Range/Units 07:15 12:30 WBC (4.0-10.2) K/uL RBC (4.33-5.41) M/uL Hgb (13.1-16.8) g/dL Hct (39.0-49.0) % MCV (84.0-98.0) fL MCH (28.2-33.3) pg MCHC (31.7-36.0) g/dL RDW (11.2-14.1) % Plt Count (150-350) K/uL Neut % (Auto) (45.0-80.0) % Lymph % (Auto) (10.0-50.0) % [place] % (Auto) (2.0-14.0) % Eos % (Auto) (0.0-5.0) % Baso % (Auto) (0.0-2.0) % Neut # (Auto) (1.40-7.00) K/uL Lymph # (Auto) (0.50-3.50) K/uL [place] # (Auto) (0.00-1.00) K/uL Eos # (Auto) (0.00-0.50) K/uL Baso # (Auto) (0.00-0.20) K/uL PT (9.8-11.7) SEC INR APTT (22.1-29.8) SEC Sodium (136-145) mmol/L Potassium (3.5-5.1) mmol/L Chloride (98-107) mmol/L Carbon Dioxide (21.0-32.0) mmol/L BUN (7-18) mg/dL Creatinine (0.51-1.17) mg/dL Est Cr Clr Drug Dosing Estimated GFR (MDRD) mL/min Glucose (74-106) mg/dL Hemoglobin A1c 5.9 H (4.3-5.7) % Lactic Acid (0.4-2.0) mmol/L Uric Acid (2.6-7.2) mg/dL Calcium (8.5-10.1) mg/dL Magnesium (1.8-2.4) mg/dL Total Bilirubin (0.2-1.0) mg/dL AST (15-37) U/L ALT (12-78) U/L Alkaline Phosphatase (46-116) IU/L C-Reactive Protein 1.3 H (<=0.9) mg/dL Total Protein (6.4-8.2) g/dL Albumin (3.4-5.0) g/dL Triglycerides (30-150) mg/dL Cholesterol (100-200) mg/dL LDL Cholesterol, Calc (0-100) mg/dL HDL Cholesterol (40-60) mg/dL Amylase (25-115) U/L Lipase (73-393) U/L Specimen Type Urine Color Urine Appearance Urine pH (5.0-9.0) Ur Specific [place] (1.005-1.030) Urine Protein (NEGATIVE) mg/dL Urine Glucose (UA) (NEGATIVE) mg/dL Urine Ketones (NEGATIVE) mg/dL Urine Occult Blood (NEGATIVE) Urine Nitrite (NEGATIVE) Urine Bilirubin (NEGATIVE) Urine Urobilinogen (0.2-1.0) E.U./dL Ur Leukocyte Esterase (NEGATIVE) Urine RBC /HPF Urine WBC /HPF Ur Epithelial Cells /LPF Urine Bacteria (NONE TO FEW) /HPF Urine Mucus (NEGATIVE) /LPF Curt Results Last 24 Hours: Microbiology 08/22/17 12:57 Influenza Type A Antigen Screen - Final Nasal, Unspecified NEGATIVE INFLUENZA A VIRUS AG Influenza Type B Antigen Screen - Final NEGATIVE INFLUENZA B VIRUS AG 08/21/17 17:45 Stool Occult Blood (CURT) - Final Stool / Feces NEGATIVE OCCULT BLOOD Med Orders - Current: Current Medications Acetaminophen (Tylenol) 650 mg PO Q4H PRN PRN Reason: Pain Last Admin: 08/21/17 23:04 Dose: 650 mg Acetaminophen (Tylenol) 650 mg PO BID@,18 [facility] Last Admin: 08/22/17 08:00 Dose: 650 mg Albuterol (Proventil Neb Soln) 2.5 mg INH Q2H PRN PRN Reason: SHORTNESS OF BREATH Albuterol/Ipratropium (Duoneb 3.0-0.5 Mg/3 Ml) 3 ml NEB Q4HRRT PRN PRN Reason: Dyspnea Last Admin: 08/21/17 21:03 Dose: 3 ml Albuterol/Ipratropium (Duoneb 3.0-0.5 Mg/3 Ml) 3 ml NEB Q6HRRT [facility] Last Admin: 08/22/17 13:11 Dose: 3 ml Artificial Tears (Liquitears 1.4% Ophth Soln) 0 ml EYEBOTH QID PRN PRN Reason: DRY EYES Aspirin (Ecotrin) 325 mg PO DAILY [facility] Last Admin: 08/22/17 08:05 Dose: 325 mg Atorvastatin Calcium (Lipitor) 10 mg PO DAILY@1800 [facility] Calamine/Phenol (Calmoseptine) 0 gm TOP BID PRN PRN Reason: ITCHING Donepezil HCl (Aricept) 10 mg PO DAILY [facility] Last Admin: 08/22/17 08:04 Dose: 10 mg Famotidine (Pepcid) 20 mg IVPUSH Q12H [facility] Ciprofloxacin/Dextrose 200 mg/ (Premix) 100 mls @ 100 mls/hr IV Q12HR [facility] Last Admin: 08/22/17 07:59 Dose: 100 mls/hr Potassium Chloride/Dextrose/Sod Cl (D5 1/2 Ns W/ 20 Meq/L Kcl) 1,000 mls @ 75 mls/hr IV ASDIRECTED [facility] Last Admin: 08/21/17 23:04 Dose: 75 mls/hr Metronidazole 500 mg/ Premix 100 mls @ 100 mls/hr IV Q8H [facility] Last Admin: 08/22/17 10:43 Dose: 100 mls/hr Levetiracetam (Keppra) 1,500 mg PO BID@0800,1800 [facility] Last Admin: 08/22/17 08:03 Dose: 1,500 mg Lisinopril (Prinivil) 10 mg PO DAILY [facility] Last Admin: 08/22/17 08:02 Dose: 10 mg Loratadine (Claritin) 10 mg PO DAILY [facility] Last Admin: 08/22/17 08:04 Dose: 10 mg Lorazepam (Ativan) 0.5 mg PO DAILY PRN PRN Reason: Seizures Multivitamins/Minerals/Vitamin C (Tab-A-Johnny) 1 tab PO DAILY [facility] Last Admin: 08/22/17 08:04 Dose: 1 tab Non-Formulary Medication (Miconazole Nitrate [Athlete's Foot]) 1 applic TOP BID PRN PRN Reason: Athletes foot Ondansetron HCl (Zofran) 4 mg IVPUSH Q6H PRN PRN Reason: Nausea/Vomiting Oxcarbazepine (Trileptal) 450 mg PO BID@ [facility] Last Admin: 08/22/17 08:01 Dose: 450 mg Pantoprazole Sodium (Protonix Iv) 40 mg IVPUSH Q12H [facility] Last Admin: 08/22/17 07:59 Dose: 40 mg Sodium Chloride (Saline Flush) 10 ml FLUSH ASDIRECTED PRN PRN Reason: Keep Vein Open Last Admin: 08/22/17 02:12 Dose: 10 ml Sodium Chloride (Saline Flush) 10 ml FLUSH Q12HR [facility] Last Admin: 08/22/17 08:06 Dose: 10 ml Temazepam (Restoril) 15 mg PO DAILY@2000 PRN PRN Reason: Insomnia Trolamine Salicylate (Aspercreme 10%) 0 gm TOP Q4H PRN PRN Reason: Pain Discontinued Medications Acetaminophen (Tylenol) 650 mg PO NOW ONE Stop: 08/21/17 18:39 Last Admin: 08/21/17 18:52 Dose: 650 mg Famotidine (Pepcid) 40 mg IVPUSH ONETIME ONE Stop: 08/21/17 17:52 Last Admin: 08/21/17 18:52 Dose: 40 mg Metronidazole 500 mg/ Premix 100 mls @ 100 mls/hr IV Q8H [facility] Last Admin: 08/21/17 18:52 Dose: 100 mls/hr Metronidazole (Flagyl 500 Mg In Ns 100 Ml) Confirm Administered Dose 100 mls @ as directed .ROUTE .STK-MED ONE Stop: 08/21/17 18:49 Last Admin: 08/21/17 18:56 Dose: Not Given Metronidazole 500 mg/ Premix 100 mls @ 100 mls/hr IV Q8H OUMOU Levetiracetam (Keppra) 1,500 mg PO ONETIME ONE Stop: 08/21/17 21:16 Last Admin: 08/21/17 21:23 Dose: 1,500 mg Ondansetron HCl (Zofran) 4 mg IVPUSH ONETIME ONE Stop: 08/21/17 17:52 Last Admin: 08/21/17 18:52 Dose: 4 mg Oxcarbazepine (Trileptal) 450 mg PO ONETIME ONE Stop: 08/21/17 21:16 Last Admin: 08/21/17 21:23 Dose: 450 mg Pantoprazole Sodium (Protonix Iv) 40 mg IVPUSH ONETIME ONE Stop: 08/21/17 17:52 Last Admin: 08/21/17 18:52 Dose: 40 mg - Exam General: Alert, Cooperative, No Acute Distress HEENT: Mucous Membr. Moist/[place] Neck: Trachea Midline, No JVD Lungs: Normal Respiratory Effort, Decreased Breath Sounds Cardiovascular: Regular Rate, Regular Rhythm GI/Abdominal Exam: Normal Bowel Sounds, Soft, Non-Tender, No Distention (Male) Exam: Deferred Back Exam: Normal Inspection Extremities: Non-Tender, Pedal Edema Skin: Warm, Dry, Intact Neurological: No New Focal Deficit Psy/Mental Status: Alert, Normal Affect, Normal Mood - Problem List & Annotations (1) Fever SNOMED Code(s): 413409256 Code(s): R50.9 - FEVER, UNSPECIFIED Status: Acute Priority: High Current Visit: Yes Qualifiers: Encounter type: initial encounter (2) Hyperglycemia SNOMED Code(s): 46627577 Code(s): R73.9 - HYPERGLYCEMIA, UNSPECIFIED Status: Acute Priority: Medium Current Visit: Yes Onset Date: 08/21/17 Annotation/Comment:: Glycosylated hemoglobin in a.m. (3) Nausea and vomiting SNOMED Code(s): 85109879 Code(s): R11.2 - NAUSEA WITH VOMITING, UNSPECIFIED Status: Acute Priority : High Current Visit: Yes Onset Date: 08/21/17 Qualifiers: Vomiting type: unspecified Vomiting Intractability: non-intractable Qualified Code(s): R11.2 - Nausea with vomiting, unspecified Annotation/Comment:: Possibility of threatening bowel obstruction with IV Cipro and IV Flagyl initiated in the emergency room. Blood cultures 2 were collected.. Abdominal assessments with vitals. Repeat x-rays and blood work in the a.m. with consideration of CT scan of the abdomen and pelvis depending on his clinical course. Surgical consultation as needed. Consider NG tube therapy, if patient does not respond to the above treatments. Note LFTs elevation as above with amylase and lipase normal at this time. (4) COPD (chronic obstructive pulmonary disease) SNOMED Code(s): 84953214 Code(s): J44.9 - CHRONIC OBSTRUCTIVE PULMONARY DISEASE, UNSPECIFIED Status : Chronic Priority: Medium Current Visit: Yes Qualifiers: COPD type: COPD with acute lower respiratory infection Qualified Code(s): J44.0 - Chronic obstructive pulmonary disease with acute lower respiratory infection Annotation/Comment:: Stable by patient history with no current medical therapy, however nebulizer treatments during this hospitalization secondary to possible borderline aspiration pneumonia (5) Caries SNOMED Code(s): 05314109 Code(s): K02.9 - DENTAL CARIES, UNSPECIFIED Status: Chronic Priority: Medium Current Visit: Yes Annotation/Comment:: Dental evaluation and treatment advisable (6) Hemiparesis SNOMED Code(s): 41665720 Code(s): G81.90 - HEMIPLEGIA, UNSPECIFIED AFFECTING UNSPECIFIED SIDE Status : Chronic Priority: Medium Current Visit: Yes Qualifiers: Hemiparesis etiology: late effect of cerebrovascular disease Cerebrovascular disease type: nontraumatic intracerebral hemorrhage Hemiparesis laterality: right dominant side Qualified Code(s): I69.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 No change in neurological status with previous history of recurrent falls , etc. (7) History of MRSA infection SNOMED Code(s): 530465251, 733841709 Code(s): Z86.14 - PERSONAL HISTORY OF METHICILLIN RESIS STAPH INFECTION Status: Chronic Current Visit: Yes Annotation/Comment:: History of MRSA infection with current long term placement. Standard MRSA culture orders on admission (8) Hyperlipidemia SNOMED Code(s): 74116102 Code(s): E78.5 - HYPERLIPIDEMIA, UNSPECIFIED Status: Chronic Priority: Medium Current Visit: Yes Qualifiers: Hyperlipidemia type: mixed hyperlipidemia Qualified Code(s): E78.2 - Mixed hyperlipidemia Annotation/Comment:: Lipid panel in a.m. (9) Hypertension SNOMED Code(s): 31561071 Code(s): I10 - ESSENTIAL (PRIMARY) HYPERTENSION Status: Chronic Priority : Medium Current Visit: Yes Qualifiers: Hypertension type: essential hypertension Qualified Code(s): I10 - Essential (primary) hypertension Annotation/Comment:: Pressures under good control in the emergency room (10) Mixed anxiety depressive disorder SNOMED Code(s): 057138997 Code(s): F41.8 - OTHER SPECIFIED ANXIETY DISORDERS Status: Chronic Priority: Medium Current Visit: Yes Annotation/Comment:: Stable by patient history. 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 Stable by history (12) Osteoarthritis SNOMED Code(s): 639873755 Code(s): M19.90 - UNSPECIFIED OSTEOARTHRITIS, UNSPECIFIED SITE Status: Chronic Priority: Medium Current Visit: Yes Qualifiers: Osteoarthritis location: multiple joints Osteoarthritis type: primary Qualified Code(s): M15.0 - Primary generalized (osteo)arthritis Annotation/Comment:: Stable by history (13) Peptic reflux disease SNOMED Code(s): 132560341 Code(s): K21.9 - GASTRO-ESOPHAGEAL REFLUX DISEASE WITHOUT ESOPHAGITIS Status: Chronic Priority: Medium Current Visit: Yes Annotation/Comment:: Stable by history with high-dose IV Pepcid and IV Protonix given in the emergency room (14) Normal pressure hydrocephalus SNOMED Code(s): 82227390 Code(s): G91.2 - (IDIOPATHIC) NORMAL PRESSURE HYDROCEPHALUS Status: Acute Priority: High Current Visit: Yes (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, old, ataxia SNOMED Code(s): 01765730142241 Code(s): I69.993 - ATAXIA FOLLOWING UNSPECIFIED CEREBROVASCULAR DISEASE Status: Acute Priority: High Current Visit: Yes - Problem List Review Problem List Initiated/Reviewed/Updated: Yes - My Orders Last 24 Hours: My Active Orders 08/22/17 12:14 Consult to Physical Therapy [PT Evaluation and Treatment] [CONS] Routine 08/22/17 12:15 Care Management Consult [Consult to Case Management] [CONS] Routine Consult to Occupational Therapy [OT Evaluation and Treatment] [CONS] Routine 08/22/17 12:18 Abdomen Comp [US] Routine 08/22/17 14:34 Consult to Speech Language Pathology [MEDICAL PATHOLOGY TEACHER Evaluation and Treatment] [CONS] Routine 08/22/17 Lunch Regular Diet [DIET] 08/23/17 05:11 CBC WITH AUTO DIFF [HEME] DAILY CMP [COMPREHENSIVE METABOLIC PN,CMP] [CHEM] DAILY CRP [C-REACTIVE PROTEIN] [CHEM] DAILY 08/24/17 05:11 CBC WITH AUTO DIFF [HEME] DAILY CMP [COMPREHENSIVE METABOLIC PN,CMP] [CHEM] DAILY CRP [C-REACTIVE PROTEIN] [CHEM] DAILY 08/25/17 05:11 CBC WITH AUTO DIFF [HEME] DAILY CMP [COMPREHENSIVE METABOLIC PN,CMP] [CHEM] DAILY CRP [C-REACTIVE PROTEIN] [CHEM] DAILY - Plan Plan:: 08/22/17 Delfino Oleary MD Feeling much better today. No fever today. Hungry. Getting abdomenal ultrasound to rule out ascites. Continue IV antibiotics.
[2017-08-22] MEDS: atorvaSTATin 10 MG Tab PO SCH (17:34)
[2017-08-22] MEDS: Famotidine 20 MG/2 ML SDV IVPUSH SCH (19:58)
[2017-08-22] MEDS ORDERED: metroNIDAZOLE/Normal Saline 500 MG in Premix Bag 1 BAG IV SCH (20:12)
[2017-08-23] MEDS: D5 1/2 NS w/ 20 mEq/L KCl 1,000 ML IV SCH (00:18)
[2017-08-23] MEDS: metroNIDAZOLE/Normal Saline 500 MG in Premix Bag 1 BAG IV SCH ×3 (02:11→17:23)
[2017-08-23] MEDS: Albuterol/Ipratropium 3.0-0.5 MG/3 ML Neb Soln NEB SCH ×5 (02:59→19:48)
[2017-08-23] MEDS: Acetaminophen 325 MG Tab PO PRN ×2 (05:15→21:41)
[2017-08-23 07:24] LABS: CHLORIDE,CL 105 mmol/L (98-107); SODIUM,NA 139 mmol/L (136-145)
[2017-08-23] MEDS: Aspirin 325 MG Tab.EC PO SCH (07:30)
[2017-08-23] MEDS: Donepezil 10 MG Tab PO SCH (07:30)
[2017-08-23] MEDS: levETIRAcetam 500 MG Tab PO SCH ×2 (07:30→17:22)
[2017-08-23] MEDS: Lisinopril 10 MG Tab PO SCH (07:30)
[2017-08-23] MEDS: Loratadine 10 MG Tab PO SCH (07:30)
[2017-08-23] MEDS: OXcarbazepine 300 MG Tab PO SCH ×2 (07:31→17:21)
[2017-08-23] MEDS: Acetaminophen 325 MG Tab PO SCH ×2 (07:31→17:22)
[2017-08-23] MEDS: Multivitamin Tab PO SCH (07:31)
[2017-08-23] MEDS: Pantoprazole 40 MG Vial IVPUSH SCH ×2 (07:33→19:49)
[2017-08-23] MEDS: Famotidine 20 MG/2 ML SDV IVPUSH SCH ×2 (07:33→19:49)
[2017-08-23] MEDS: Ciprofloxacin in D5W 200 MG in Premix Bag 1 BAG IV SCH ×4 (07:33→19:48)
[2017-08-23] MEDS: Sodium Chloride 0.9% 10 ML Syringe FLUSH SCH ×2 (08:48→19:49)
[2017-08-23] MEDS: atorvaSTATin 10 MG Tab PO SCH (17:22)
--- NOTE | 2017-08-23 18:42 | PCM.PN ---
- General Info Date of Service: 08/23/17 Functional Status: Reports: Pain Controlled, Tolerating Diet - Review of Systems General: Reports: No Symptoms HEENT: Reports: No Symptoms Pulmonary: Reports: No Symptoms Cardiovascular: Reports: No Symptoms Gastrointestinal: Reports: No Symptoms Genitourinary: Reports: No Symptoms Musculoskeletal: Reports: No Symptoms Skin: Reports: No Symptoms Neurological: Reports: Pre-Existing Deficit Psychiatric: Reports: Agitation (at times) - Patient Data Vitals - Most Recent: Last Vital Signs Temp 98.4 F 08/23/17 15:53 Pulse 63 08/23/17 15:53 Resp 20 08/23/17 15:53 BP 141/70 H 08/23/17 15:53 Pulse Ox 95 08/23/17 15:53 Weight - Most Recent: 240 lb 9.6 oz I&O - Last 24 Hours: Intake & Output 08/23/17 08/23/17 08/23/17 06:59 14:59 22:59 Intake Total 1612 360 394 Output Total 600 800 875 Balance 1016 -440 -451 Lab Results Last 24 Hours: Laboratory Results - last 24 hr 08/23/17 08/23/17 Range/Units 06:50 06:50 WBC 8.4 (4.0-10.2) K/uL RBC 4.50 (4.33-5.41) M/uL Hgb 14.0 (13.1-16.8) g/dL Hct 41.2 (39.0-49.0) % MCV 91.6 (84.0-98.0) fL MCH 31.1 (28.2-33.3) pg MCHC 34.0 (31.7-36.0) g/dL RDW 12.7 (11.2-14.1) % Plt Count 233 (150-350) K/uL Neut % (Auto) 61.8 (45.0-80.0) % Lymph % (Auto) 17.3 (10.0-50.0) % [place] % (Auto) 14.9 H (2.0-14.0) % Eos % (Auto) 5.6 H (0.0-5.0) % Baso % (Auto) 0.4 (0.0-2.0) % Neut # (Auto) 5.18 (1.40-7.00) K/uL Lymph # (Auto) 1.45 (0.50-3.50) K/uL [place] # (Auto) 1.25 H (0.00-1.00) K/uL Eos # (Auto) 0.47 (0.00-0.50) K/uL Baso # (Auto) 0.03 (0.00-0.20) K/uL Sodium 139 (136-145) mmol/L Potassium 4.0 (3.5-5.1) mmol/L Chloride 105 (98-107) mmol/L Carbon Dioxide 27.6 (21.0-32.0) mmol/L BUN 13 (7-18) mg/dL Creatinine 0.95 (0.51-1.17) mg/dL Est Cr Clr Drug Dosing 72.11 mL/min Estimated GFR (MDRD) > 60 mL/min Glucose 111 H (74-106) mg/dL Calcium 8.6 (8.5-10.1) mg/dL Total Bilirubin 0.5 (0.2-1.0) mg/dL AST 29 (15-37) U/L ALT 61 (12-78) U/L Alkaline Phosphatase 192 H (46-116) IU/L C-Reactive Protein 1.2 H (<=0.9) mg/dL Total Protein 6.4 (6.4-8.2) g/dL Albumin 3.1 L (3.4-5.0) g/dL Curt Results Last 24 Hours: Microbiology 08/21/17 23:00 MRSA (PCR) - Final Nasal, Left 08/21/17 23:50 Urine Culture - Final Urine, Clean Catch MIXED POSITIVE JULIANE DAY 2 08/23/17 08:30 Stool Occult Blood (CURT) - Final Stool / Feces NEGATIVE OCCULT BLOOD 08/21/17 18:50 Aerobic Blood Culture - Preliminary Blood - Venous - Lab Draw NO GROWTH AFTER 1 DAY Anaerobic Blood Culture - Preliminary NO GROWTH AFTER 1 DAY 08/21/17 18:35 Aerobic Blood Culture - Preliminary Blood - Venous NO GROWTH AFTER 1 DAY Anaerobic Blood Culture - Preliminary NO GROWTH AFTER 1 DAY 08/21/17 23:00 Gram Stain - Final Sputum - Expectorated Med Orders - Current: Current Medications Acetaminophen (Tylenol) 650 mg PO Q4H PRN PRN Reason: Pain Last Admin: 08/23/17 05:15 Dose: 650 mg Acetaminophen (Tylenol) 650 mg PO BID@08,18 [facility] Last Admin: 08/23/17 17:22 Dose: 650 mg Albuterol (Proventil Neb Soln) 2.5 mg INH Q2H PRN PRN Reason: SHORTNESS OF BREATH Albuterol/Ipratropium (Duoneb 3.0-0.5 Mg/3 Ml) 3 ml NEB Q4HRRT PRN PRN Reason: Dyspnea Last Admin: 08/21/17 21:03 Dose: 3 ml Albuterol/Ipratropium (Duoneb 3.0-0.5 Mg/3 Ml) 3 ml NEB Q6HRRT [facility] Last Admin: 08/23/17 13:31 Dose: Not Given Artificial Tears (Liquitears 1.4% Ophth Soln) 0 ml EYEBOTH QID PRN PRN Reason: DRY EYES Aspirin (Ecotrin) 325 mg PO DAILY [facility] Last Admin: 08/23/17 07:30 Dose: 325 mg Atorvastatin Calcium (Lipitor) 10 mg PO DAILY@1800 [facility] Last Admin: 08/23/17 17:22 Dose: 10 mg Calamine/Phenol (Calmoseptine) 0 gm TOP BID PRN PRN Reason: ITCHING Donepezil HCl (Aricept) 10 mg PO DAILY [facility] Last Admin: 08/23/17 07:30 Dose: 10 mg Famotidine (Pepcid) 20 mg IVPUSH Q12H [facility] Last Admin: 08/23/17 07:33 Dose: 20 mg Ciprofloxacin/Dextrose 200 mg/ (Premix) 100 mls @ 100 mls/hr IV Q12HR [facility] Last Admin: 08/23/17 07:33 Dose: 100 mls/hr Metronidazole 500 mg/ Premix 100 mls @ 100 mls/hr IV Q8H [facility] Last Admin: 08/23/17 17:23 Dose: 100 mls/hr Levetiracetam (Keppra) 1,500 mg PO BID@0800,1800 [facility] Last Admin: 08/23/17 17:22 Dose: 1,500 mg Lisinopril (Prinivil) 10 mg PO DAILY [facility] Last Admin: 08/23/17 07:30 Dose: 10 mg Loratadine (Claritin) 10 mg PO DAILY [facility] Last Admin: 08/23/17 07:30 Dose: 10 mg Lorazepam (Ativan) 0.5 mg PO DAILY PRN PRN Reason: Seizures Multivitamins/Minerals/Vitamin C (Tab-A-Johnny) 1 tab PO DAILY [facility] Last Admin: 08/23/17 07:31 Dose: 1 tab Non-Formulary Medication (Miconazole Nitrate [Athlete's Foot]) 1 applic TOP BID PRN PRN Reason: Athletes foot Ondansetron HCl (Zofran) 4 mg IVPUSH Q6H PRN PRN Reason: Nausea/Vomiting Oxcarbazepine (Trileptal) 450 mg PO BID@ [facility] Last Admin: 08/23/17 17:21 Dose: 450 mg Pantoprazole Sodium (Protonix Iv) 40 mg IVPUSH Q12H [facility] Last Admin: 08/23/17 07:33 Dose: 40 mg Sodium Chloride (Saline Flush) 10 ml FLUSH ASDIRECTED PRN PRN Reason: Keep Vein Open Last Admin: 08/22/17 20:10 Dose: 10 ml Sodium Chloride (Saline Flush) 10 ml FLUSH Q12HR [facility] Last Admin: 08/23/17 08:48 Dose: 10 ml Temazepam (Restoril) 15 mg PO DAILY@2000 PRN PRN Reason: Insomnia Trolamine Salicylate (Aspercreme 10%) 0 gm TOP Q4H PRN PRN Reason: Pain Discontinued Medications Acetaminophen (Tylenol) 650 mg PO NOW ONE Stop: 08/21/17 18:39 Last Admin: 08/21/17 18:52 Dose: 650 mg Famotidine (Pepcid) 40 mg IVPUSH ONETIME ONE Stop: 08/21/17 17:52 Last Admin: 08/21/17 18:52 Dose: 40 mg Metronidazole 500 mg/ Premix 100 mls @ 100 mls/hr IV Q8H [facility] Last Admin: 08/21/17 18:52 Dose: 100 mls/hr Metronidazole (Flagyl 500 Mg In Ns 100 Ml) Confirm Administered Dose 100 mls @ as directed .ROUTE .STK-MED ONE Stop: 08/21/17 18:49 Last Admin: 08/21/17 18:56 Dose: Not Given Potassium Chloride/Dextrose/Sod Cl (D5 1/2 Ns W/ 20 Meq/L Kcl) 1,000 mls @ 75 mls/hr IV ASDIRECTED [facility] Last Admin: 08/23/17 00:18 Dose: 75 mls/hr Metronidazole 500 mg/ Premix 100 mls @ 100 mls/hr IV Q8H [facility] Levetiracetam (Keppra) 1,500 mg PO ONETIME ONE Stop: 08/21/17 21:16 Last Admin: 08/21/17 21:23 Dose: 1,500 mg Ondansetron HCl (Zofran) 4 mg IVPUSH ONETIME ONE Stop: 08/21/17 17:52 Last Admin: 08/21/17 18:52 Dose: 4 mg Oxcarbazepine (Trileptal) 450 mg PO ONETIME ONE Stop: 08/21/17 21:16 Last Admin: 08/21/17 21:23 Dose: 450 mg Pantoprazole Sodium (Protonix Iv) 40 mg IVPUSH ONETIME ONE Stop: 08/21/17 17:52 Last Admin: 08/21/17 18:52 Dose: 40 mg - Exam General: Alert, No Acute Distress HEENT: Mucous Membr. Moist/[place] Neck: Trachea Midline, No JVD Lungs: Normal Respiratory Effort, Decreased Breath Sounds Cardiovascular: Regular Rate, Regular Rhythm GI/Abdominal Exam: Soft, Non-Tender, No Distention (Male) Exam: Deferred Back Exam: Normal Inspection Extremities: Pedal Edema Skin: Warm, Dry, Intact Neurological: No New Focal Deficit, Other (left hemiparesis) Psy/Mental Status: Alert, Normal Affect, Normal Mood - Problem List & Annotations (1) Fever SNOMED Code(s): 407820726 Code(s): R50.9 - FEVER, UNSPECIFIED Status: Acute Priority: High Current Visit: Yes Qualifiers: Encounter type: initial encounter (2) Hyperglycemia SNOMED Code(s): 49548788 Code(s): R73.9 - HYPERGLYCEMIA, UNSPECIFIED Status: Acute Priority: Medium Current Visit: Yes Onset Date: 08/21/17 Annotation/Comment:: Glycosylated hemoglobin in a.m. (3) Nausea and vomiting SNOMED Code(s): 60510059 Code(s): R11.2 - NAUSEA WITH VOMITING, UNSPECIFIED Status: Acute Priority : High Current Visit: Yes Onset Date: 08/21/17 Qualifiers: Vomiting type: unspecified Vomiting Intractability: non-intractable Qualified Code(s): R11.2 - Nausea with vomiting, unspecified Annotation/Comment:: Possibility of threatening bowel obstruction with IV Cipro and IV Flagyl initiated in the emergency room. Blood cultures 2 were collected.. Abdominal assessments with vitals. Repeat x-rays and blood work in the a.m. with consideration of CT scan of the abdomen and pelvis depending on his clinical course. Surgical consultation as needed. Consider NG tube therapy, if patient does not respond to the above treatments. Note LFTs elevation as above with amylase and lipase normal at this time. (4) COPD (chronic obstructive pulmonary disease) SNOMED Code(s): 58990212 Code(s): J44.9 - CHRONIC OBSTRUCTIVE PULMONARY DISEASE, UNSPECIFIED Status : Chronic Priority: Medium Current Visit: Yes Qualifiers: COPD type: COPD with acute lower respiratory infection Qualified Code(s): J44.0 - Chronic obstructive pulmonary disease with acute lower respiratory infection Annotation/Comment:: Stable by patient history with no current medical therapy, however nebulizer treatments during this hospitalization secondary to possible borderline aspiration pneumonia (5) Caries SNOMED Code(s): 36610547 Code(s): K02.9 - DENTAL CARIES, UNSPECIFIED Status: Chronic Priority: Medium Current Visit: Yes Annotation/Comment:: Dental evaluation and treatment advisable (6) Hemiparesis SNOMED Code(s): 39795180 Code(s): G81.90 - HEMIPLEGIA, UNSPECIFIED AFFECTING UNSPECIFIED SIDE Status : Chronic Priority: Medium Current Visit: Yes Qualifiers: Hemiparesis etiology: late effect of cerebrovascular disease Cerebrovascular disease type: nontraumatic intracerebral hemorrhage Hemiparesis laterality: right dominant side Qualified Code(s): I69.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 No change in neurological status with previous history of recurrent falls , etc. (7) History of MRSA infection SNOMED Code(s): 395184841, 853875925 Code(s): Z86.14 - PERSONAL HISTORY OF METHICILLIN RESIS STAPH INFECTION Status: Chronic Current Visit: Yes Annotation/Comment:: History of MRSA infection with current snf placement. Standard MRSA culture orders on admission (8) Hyperlipidemia SNOMED Code(s): 54004336 Code(s): E78.5 - HYPERLIPIDEMIA, UNSPECIFIED Status: Chronic Priority: Medium Current Visit: Yes Qualifiers: Hyperlipidemia type: mixed hyperlipidemia Qualified Code(s): E78.2 - Mixed hyperlipidemia Annotation/Comment:: Lipid panel in a.m. (9) Hypertension SNOMED Code(s): 07304274 Code(s): I10 - ESSENTIAL (PRIMARY) HYPERTENSION Status: Chronic Priority : Medium Current Visit: Yes Qualifiers: Hypertension type: essential hypertension Qualified Code(s): I10 - Essential (primary) hypertension Annotation/Comment:: Pressures under good control in the emergency room (10) Mixed anxiety depressive disorder SNOMED Code(s): 099194527 Code(s): F41.8 - OTHER SPECIFIED ANXIETY DISORDERS Status: Chronic Priority: Medium Current Visit: Yes Annotation/Comment:: Stable by patient history. 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 Stable by history (12) Osteoarthritis SNOMED Code(s): 077758413 Code(s): M19.90 - UNSPECIFIED OSTEOARTHRITIS, UNSPECIFIED SITE Status: Chronic Priority: Medium Current Visit: Yes Qualifiers: Osteoarthritis location: multiple joints Osteoarthritis type: primary Qualified Code(s): M15.0 - Primary generalized (osteo)arthritis Annotation/Comment:: Stable by history (13) Peptic reflux disease SNOMED Code(s): 396879122 Code(s): K21.9 - GASTRO-ESOPHAGEAL REFLUX DISEASE WITHOUT ESOPHAGITIS Status: Chronic Priority: Medium Current Visit: Yes Annotation/Comment:: Stable by history with high-dose IV Pepcid and IV Protonix given in the emergency room (14) Normal pressure hydrocephalus SNOMED Code(s): 18694249 Code(s): G91.2 - (IDIOPATHIC) NORMAL PRESSURE HYDROCEPHALUS Status: Acute Priority: High Current Visit: Yes (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, old, ataxia SNOMED Code(s): 08183209203097 Code(s): I69.993 - ATAXIA FOLLOWING UNSPECIFIED CEREBROVASCULAR DISEASE Status: Acute Priority: High Current Visit: Yes - Problem List Review Problem List Initiated/Reviewed/Updated: Yes - My Orders Last 24 Hours: My Active Orders 08/24/17 05:11 CBC WITH AUTO DIFF [HEME] DAILY CMP [COMPREHENSIVE METABOLIC PN,CMP] [CHEM] DAILY CRP [C-REACTIVE PROTEIN] [CHEM] DAILY 08/24/17 08:00 Head wo Cont [CT] Routine 08/25/17 05:11 CBC WITH AUTO DIFF [HEME] DAILY CMP [COMPREHENSIVE METABOLIC PN,CMP] [CHEM] DAILY CRP [C-REACTIVE PROTEIN] [CHEM] DAILY - Plan Plan:: 08/22/17 Delfino Oleary MD Feeling much better today. No fever today. Hungry. Getting abdomenal ultrasound to rule out ascites. Continue IV antibiotics. 08/23/17 Delfino Oleary MD Feels fine. Wants to go back to snf. Adequate oral intake. Will stop IV fluids. Probably silent aspiration per [employer]. Fly refuses to work with speech. Talked with Venita. She is worried that he had another stroke and would like a head CT. Will order for AM. Continue IV antibiotics and recheck labs in AM.
[2017-08-24] MEDS: Albuterol/Ipratropium 3.0-0.5 MG/3 ML Neb Soln NEB SCH ×2 (01:16→07:28)
[2017-08-24] MEDS: metroNIDAZOLE/Normal Saline 500 MG in Premix Bag 1 BAG IV SCH ×2 (01:17→10:01)
[2017-08-24] MEDS: Sodium Chloride 0.9% 10 ML Syringe FLUSH PRN ×2 (01:17→10:01)
[2017-08-24] MEDS: Acetaminophen 325 MG Tab PO PRN (06:32)
[2017-08-24 07:09] LABS: CHLORIDE,CL 105 mmol/L (98-107); SODIUM,NA 140 mmol/L (136-145)
[2017-08-24] MEDS: Loratadine 10 MG Tab PO SCH (07:28)
[2017-08-24] MEDS: levETIRAcetam 500 MG Tab PO SCH (07:28)
[2017-08-24] MEDS: Aspirin 325 MG Tab.EC PO SCH (07:29)
[2017-08-24] MEDS: Multivitamin Tab PO SCH (07:29)
[2017-08-24] MEDS: Acetaminophen 325 MG Tab PO SCH (07:29)
[2017-08-24] MEDS: Donepezil 10 MG Tab PO SCH (07:29)
[2017-08-24] MEDS: OXcarbazepine 300 MG Tab PO SCH (07:29)
[2017-08-24] MEDS: Lisinopril 10 MG Tab PO SCH (07:29)
[2017-08-24] MEDS: Pantoprazole 40 MG Vial IVPUSH SCH (07:30)
[2017-08-24] MEDS: Famotidine 20 MG/2 ML SDV IVPUSH SCH (07:30)
[2017-08-24] MEDS: Ciprofloxacin in D5W 200 MG in Premix Bag 1 BAG IV SCH ×2 (07:30)
[2017-08-24] MEDS: Sodium Chloride 0.9% 10 ML Syringe FLUSH SCH (07:31)
--- NOTE | 2017-08-24 13:53 | PCM.PN ---
- General Info Date of Service: 08/24/17 Functional Status: Reports: Pain Controlled - Review of Systems General: Reports: No Symptoms HEENT: Reports: No Symptoms Pulmonary: Reports: No Symptoms Cardiovascular: Reports: No Symptoms Gastrointestinal: Reports: No Symptoms Genitourinary: Reports: No Symptoms Musculoskeletal: Reports: No Symptoms Skin: Reports: No Symptoms Neurological: Reports: Pre-Existing Deficit Psychiatric: Reports: No Symptoms - Patient Data Vitals - Most Recent: Last Vital Signs Temp 97.9 F 08/24/17 12:00 Pulse 79 08/24/17 12:00 Resp 15 08/24/17 12:00 BP 134/74 08/24/17 12:00 Pulse Ox 93 L 08/24/17 12:00 Weight - Most Recent: 240 lb 9.6 oz I&O - Last 24 Hours: Intake & Output 08/23/17 08/24/17 08/24/17 22:59 06:59 14:59 Intake Total 642 487 2236 Output Total 1275 1150 700 Balance -881 -950 860 Lab Results Last 24 Hours: Laboratory Results - last 24 hr 08/24/17 08/24/17 Range/Units 06:50 06:50 WBC 8.5 (4.0-10.2) K/uL RBC 4.68 (4.33-5.41) M/uL Hgb 14.8 (13.1-16.8) g/dL Hct 42.6 (39.0-49.0) % MCV 91.0 (84.0-98.0) fL MCH 31.6 (28.2-33.3) pg MCHC 34.7 (31.7-36.0) g/dL RDW 12.8 (11.2-14.1) % Plt Count 249 (150-350) K/uL Neut % (Auto) 58.9 (45.0-80.0) % Lymph % (Auto) 16.9 (10.0-50.0) % [place] % (Auto) 14.0 (2.0-14.0) % Eos % (Auto) 9.6 H (0.0-5.0) % Baso % (Auto) 0.6 (0.0-2.0) % Neut # (Auto) 5.02 (1.40-7.00) K/uL Lymph # (Auto) 1.44 (0.50-3.50) K/uL [place] # (Auto) 1.19 H (0.00-1.00) K/uL Eos # (Auto) 0.82 H (0.00-0.50) K/uL Baso # (Auto) 0.05 (0.00-0.20) K/uL Sodium 140 (136-145) mmol/L Potassium 4.1 (3.5-5.1) mmol/L Chloride 105 (98-107) mmol/L Carbon Dioxide 25.8 (21.0-32.0) mmol/L BUN 12 (7-18) mg/dL Creatinine 0.88 (0.51-1.17) mg/dL Est Cr Clr Drug Dosing 77.85 mL/min Estimated GFR (MDRD) > 60 mL/min Glucose 102 (74-106) mg/dL Calcium 9.1 (8.5-10.1) mg/dL Total Bilirubin 0.6 (0.2-1.0) mg/dL AST 32 (15-37) U/L ALT 57 (12-78) U/L Alkaline Phosphatase 200 H (46-116) IU/L C-Reactive Protein 1.7 H (<=0.9) mg/dL Total Protein 6.9 (6.4-8.2) g/dL Albumin 3.3 L (3.4-5.0) g/dL Curt Results Last 24 Hours: Microbiology 08/21/17 23:00 Gram Stain - Final Sputum - Expectorated Sputum Culture - Final NORMAL RESPIRATORY JULIANE 2 DAYS 08/21/17 18:50 Aerobic Blood Culture - Preliminary Blood - Venous - Lab Draw NO GROWTH AFTER 2 DAYS Anaerobic Blood Culture - Preliminary NO GROWTH AFTER 2 DAYS 08/21/17 18:35 Aerobic Blood Culture - Preliminary Blood - Venous NO GROWTH AFTER 2 DAYS Anaerobic Blood Culture - Preliminary NO GROWTH AFTER 2 DAYS 08/21/17 23:00 MRSA (PCR) - Final Nasal, Left 08/21/17 23:50 Urine Culture - Final Urine, Clean Catch MIXED POSITIVE JULIANE DAY 2 08/23/17 08:30 Stool Occult Blood (CURT) - Final Stool / Feces NEGATIVE OCCULT BLOOD Med Orders - Current: Current Medications Acetaminophen (Tylenol) 650 mg PO Q4H PRN PRN Reason: Pain Last Admin: 08/24/17 06:32 Dose: 650 mg Acetaminophen (Tylenol) 650 mg PO BID@08,18 [facility] Last Admin: 08/24/17 07:29 Dose: 650 mg Albuterol (Proventil Neb Soln) 2.5 mg INH Q2H PRN PRN Reason: SHORTNESS OF BREATH Albuterol/Ipratropium (Duoneb 3.0-0.5 Mg/3 Ml) 3 ml NEB Q4HRRT PRN PRN Reason: Dyspnea Last Admin: 08/21/17 21:03 Dose: 3 ml Albuterol/Ipratropium (Duoneb 3.0-0.5 Mg/3 Ml) 3 ml NEB Q6HRRT [facility] Last Admin: 08/24/17 07:28 Dose: Not Given Artificial Tears (Liquitears 1.4% Ophth Soln) 0 ml EYEBOTH QID PRN PRN Reason: DRY EYES Aspirin (Ecotrin) 325 mg PO DAILY [facility] Last Admin: 08/24/17 07:29 Dose: 325 mg Atorvastatin Calcium (Lipitor) 10 mg PO DAILY@1800 [facility] Last Admin: 08/23/17 17:22 Dose: 10 mg Calamine/Phenol (Calmoseptine) 0 gm TOP BID PRN PRN Reason: ITCHING Donepezil HCl (Aricept) 10 mg PO DAILY [facility] Last Admin: 08/24/17 07:29 Dose: 10 mg Famotidine (Pepcid) 20 mg IVPUSH Q12H [facility] Last Admin: 08/24/17 07:30 Dose: 20 mg Ciprofloxacin/Dextrose 200 mg/ (Premix) 100 mls @ 100 mls/hr IV Q12HR [facility] Last Admin: 08/24/17 07:30 Dose: 100 mls/hr Metronidazole 500 mg/ Premix 100 mls @ 100 mls/hr IV Q8H [facility] Last Admin: 08/24/17 10:01 Dose: 100 mls/hr Levetiracetam (Keppra) 1,500 mg PO BID@0800,1800 [facility] Last Admin: 08/24/17 07:28 Dose: 1,500 mg Lisinopril (Prinivil) 10 mg PO DAILY [facility] Last Admin: 08/24/17 07:29 Dose: 10 mg Loratadine (Claritin) 10 mg PO DAILY [facility] Last Admin: 08/24/17 07:28 Dose: 10 mg Lorazepam (Ativan) 0.5 mg PO DAILY PRN PRN Reason: Seizures Multivitamins/Minerals/Vitamin C (Tab-A-Johnny) 1 tab PO DAILY [facility] Last Admin: 08/24/17 07:29 Dose: 1 tab Non-Formulary Medication (Miconazole Nitrate [Athlete's Foot]) 1 applic TOP BID PRN PRN Reason: Athletes foot Ondansetron HCl (Zofran) 4 mg IVPUSH Q6H PRN PRN Reason: Nausea/Vomiting Oxcarbazepine (Trileptal) 450 mg PO BID@ [facility] Last Admin: 08/24/17 07:29 Dose: 450 mg Pantoprazole Sodium (Protonix Iv) 40 mg IVPUSH Q12H [facility] Last Admin: 08/24/17 07:30 Dose: 40 mg Sodium Chloride (Saline Flush) 10 ml FLUSH ASDIRECTED PRN PRN Reason: Keep Vein Open Last Admin: 08/24/17 10:01 Dose: 10 ml Sodium Chloride (Saline Flush) 10 ml FLUSH Q12HR [facility] Last Admin: 08/24/17 07:31 Dose: 10 ml Temazepam (Restoril) 15 mg PO DAILY@1999 PRN PRN Reason: Insomnia Trolamine Salicylate (Aspercreme 10%) 0 gm TOP Q4H PRN PRN Reason: Pain Discontinued Medications Acetaminophen (Tylenol) 650 mg PO NOW ONE Stop: 08/21/17 18:39 Last Admin: 08/21/17 18:52 Dose: 650 mg Famotidine (Pepcid) 40 mg IVPUSH ONETIME ONE Stop: 08/21/17 17:52 Last Admin: 08/21/17 18:52 Dose: 40 mg Metronidazole 500 mg/ Premix 100 mls @ 100 mls/hr IV Q8H [facility] Last Admin: 08/21/17 18:52 Dose: 100 mls/hr Metronidazole (Flagyl 500 Mg In Ns 100 Ml) Confirm Administered Dose 100 mls @ as directed .ROUTE .STK-MED ONE Stop: 08/21/17 18:49 Last Admin: 08/21/17 18:56 Dose: Not Given Potassium Chloride/Dextrose/Sod Cl (D5 1/2 Ns W/ 20 Meq/L Kcl) 1,000 mls @ 75 mls/hr IV ASDIRECTED [facility] Last Admin: 08/23/17 00:18 Dose: 75 mls/hr Metronidazole 500 mg/ Premix 100 mls @ 100 mls/hr IV Q8H [facility] Levetiracetam (Keppra) 1,500 mg PO ONETIME ONE Stop: 08/21/17 21:16 Last Admin: 08/21/17 21:23 Dose: 1,500 mg Ondansetron HCl (Zofran) 4 mg IVPUSH ONETIME ONE Stop: 08/21/17 17:52 Last Admin: 08/21/17 18:52 Dose: 4 mg Oxcarbazepine (Trileptal) 450 mg PO ONETIME ONE Stop: 08/21/17 21:16 Last Admin: 08/21/17 21:23 Dose: 450 mg Pantoprazole Sodium (Protonix Iv) 40 mg IVPUSH ONETIME ONE Stop: 08/21/17 17:52 Last Admin: 08/21/17 18:52 Dose: 40 mg - Exam General: Alert, Cooperative, No Acute Distress HEENT: Mucous Membr. Moist/[place] Neck: Trachea Midline, No JVD Lungs: Normal Respiratory Effort, Decreased Breath Sounds Cardiovascular: Regular Rate, Regular Rhythm GI/Abdominal Exam: Soft, Non-Tender, No Distention (Male) Exam: Deferred Back Exam: Normal Inspection Extremities: Non-Tender, No Pedal Edema (right) Skin: Warm, Dry, Intact Neurological: No New Focal Deficit, Other (left hemiparesis) - Problem List & Annotations (1) Fever SNOMED Code(s): 791435912 Code(s): R50.9 - FEVER, UNSPECIFIED Status: Acute Priority: High Current Visit: Yes Qualifiers: Encounter type: initial encounter (2) Hyperglycemia SNOMED Code(s): 14588516 Code(s): R73.9 - HYPERGLYCEMIA, UNSPECIFIED Status: Acute Priority: Medium Current Visit: Yes Onset Date: 08/21/17 Annotation/Comment:: Glycosylated hemoglobin in a.m. (3) Nausea and vomiting SNOMED Code(s): 49352770 Code(s): R11.2 - NAUSEA WITH VOMITING, UNSPECIFIED Status: Acute Priority : High Current Visit: Yes Onset Date: 08/21/17 Qualifiers: Vomiting type: unspecified Vomiting Intractability: non-intractable Qualified Code(s): R11.2 - Nausea with vomiting, unspecified Annotation/Comment:: Possibility of threatening bowel obstruction with IV Cipro and IV Flagyl initiated in the emergency room. Blood cultures 2 were collected.. Abdominal assessments with vitals. Repeat x-rays and blood work in the a.m. with consideration of CT scan of the abdomen and pelvis depending on his clinical course. Surgical consultation as needed. Consider NG tube therapy, if patient does not respond to the above treatments. Note LFTs elevation as above with amylase and lipase normal at this time. (4) COPD (chronic obstructive pulmonary disease) SNOMED Code(s): 30226084 Code(s): J44.9 - CHRONIC OBSTRUCTIVE PULMONARY DISEASE, UNSPECIFIED Status : Chronic Priority: Medium Current Visit: Yes Qualifiers: COPD type: COPD with acute lower respiratory infection Qualified Code(s): J44.0 - Chronic obstructive pulmonary disease with acute lower respiratory infection Annotation/Comment:: Stable by patient history with no current medical therapy, however nebulizer treatments during this hospitalization secondary to possible borderline aspiration pneumonia (5) Caries SNOMED Code(s): 10429588 Code(s): K02.9 - DENTAL CARIES, UNSPECIFIED Status: Chronic Priority: Medium Current Visit: Yes Annotation/Comment:: Dental evaluation and treatment advisable (6) Hemiparesis SNOMED Code(s): 88308115 Code(s): G81.90 - HEMIPLEGIA, UNSPECIFIED AFFECTING UNSPECIFIED SIDE Status : Chronic Priority: Medium Current Visit: Yes Qualifiers: Hemiparesis etiology: late effect of cerebrovascular disease Cerebrovascular disease type: nontraumatic intracerebral hemorrhage Hemiparesis laterality: right dominant side Qualified Code(s): I69.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 No change in neurological status with previous history of recurrent falls , etc. (7) History of MRSA infection SNOMED Code(s): 130204242, 024476818 Code(s): Z86.14 - PERSONAL HISTORY OF METHICILLIN RESIS STAPH INFECTION Status: Chronic Current Visit: Yes Annotation/Comment:: History of MRSA infection with current fpc placement. Standard MRSA culture orders on admission (8) Hyperlipidemia SNOMED Code(s): 93933809 Code(s): E78.5 - HYPERLIPIDEMIA, UNSPECIFIED Status: Chronic Priority: Medium Current Visit: Yes Qualifiers: Hyperlipidemia type: mixed hyperlipidemia Qualified Code(s): E78.2 - Mixed hyperlipidemia Annotation/Comment:: Lipid panel in a.m. (9) Hypertension SNOMED Code(s): 03065099 Code(s): I10 - ESSENTIAL (PRIMARY) HYPERTENSION Status: Chronic Priority : Medium Current Visit: Yes Qualifiers: Hypertension type: essential hypertension Qualified Code(s): I10 - Essential (primary) hypertension Annotation/Comment:: Pressures under good control in the emergency room (10) Mixed anxiety depressive disorder SNOMED Code(s): 891318083 Code(s): F41.8 - OTHER SPECIFIED ANXIETY DISORDERS Status: Chronic Priority: Medium Current Visit: Yes Annotation/Comment:: Stable by patient history. 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 Stable by history (12) Osteoarthritis SNOMED Code(s): 008527658 Code(s): M19.90 - UNSPECIFIED OSTEOARTHRITIS, UNSPECIFIED SITE Status: Chronic Priority: Medium Current Visit: Yes Qualifiers: Osteoarthritis location: multiple joints Osteoarthritis type: primary Qualified Code(s): M15.0 - Primary generalized (osteo)arthritis Annotation/Comment:: Stable by history (13) Peptic reflux disease SNOMED Code(s): 039954526 Code(s): K21.9 - GASTRO-ESOPHAGEAL REFLUX DISEASE WITHOUT ESOPHAGITIS Status: Chronic Priority: Medium Current Visit: Yes Annotation/Comment:: Stable by history with high-dose IV Pepcid and IV Protonix given in the emergency room (14) Normal pressure hydrocephalus SNOMED Code(s): 97336685 Code(s): G91.2 - (IDIOPATHIC) NORMAL PRESSURE HYDROCEPHALUS Status: Acute Priority: High Current Visit: Yes (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, old, ataxia SNOMED Code(s): 17639436841307 Code(s): I69.993 - ATAXIA FOLLOWING UNSPECIFIED CEREBROVASCULAR DISEASE Status: Acute Priority: High Current Visit: Yes - Problem List Review Problem List Initiated/Reviewed/Updated: Yes - My Orders Last 24 Hours: My Active Orders 08/24/17 08:00 Head wo Cont [CT] Routine Head wo Cont [CT] Routine 08/24/17 13:44 Discontinue Saline Lock [Peripheral IV Discontinue] [OM.PC] Routine 08/24/17 13:49 Ready for Discharge [RC] PER UNIT ROUTINE 08/25/17 05:11 CBC WITH AUTO DIFF [HEME] DAILY CMP [COMPREHENSIVE METABOLIC PN,CMP] [CHEM] DAILY CRP [C-REACTIVE PROTEIN] [CHEM] DAILY - Plan Plan:: 08/22/17 Delfino Oleary MD Feeling much better today. No fever today. Hungry. Getting abdomenal ultrasound to rule out ascites. Continue IV antibiotics. 08/23/17 Delfino Oleary MD Feels fine. Wants to go back to fpc. Adequate oral intake. Will stop IV fluids. Probably silent aspiration per [employer]. Fly refuses to work with speech. Talked with Venita. She is worried that he had another stroke and would like a head CT. Will order for AM. Continue IV antibiotics and recheck labs in AM. 08/24/17 Delfino Oleary MD Feeling good. Wants to go home. Labs improved and Head CT reviewed.
--- NOTE | 2017-08-24 13:54 | PCM.DCSUM1 ---
Discharge Summary - Discharge Data Discharge Date: 08/24/17 Discharge Disposition: [facility] Condition: Good - Discharge Diagnosis/Problem(s) (1) Fever SNOMED Code(s): 458774577 ICD Code: R50.9 - FEVER, UNSPECIFIED Status: Acute Priority: High Current Visit: Yes Qualifiers: Encounter type: initial encounter (2) Hyperglycemia SNOMED Code(s): 17557257 ICD Code: R73.9 - HYPERGLYCEMIA, UNSPECIFIED Status: Acute Priority: Medium Current Visit: Yes Onset Date: 08/21/17 Problem Details: Glycosylated hemoglobin in a.m. (3) Nausea and vomiting SNOMED Code(s): 76287249 ICD Code: R11.2 - NAUSEA WITH VOMITING, UNSPECIFIED Status: Acute Priority: High Current Visit: Yes Onset Date: 08/21/17 Problem Details: Possibility of threatening bowel obstruction with IV Cipro and IV Flagyl initiated in the emergency room. Blood cultures 2 were collected.. Abdominal assessments with vitals. Repeat x-rays and blood work in the a.m. with consideration of CT scan of the abdomen and pelvis depending on his clinical course. Surgical consultation as needed. Consider NG tube therapy, if patient does not respond to the above treatments. Note LFTs elevation as above with amylase and lipase normal at this time. Qualifiers: Vomiting type: unspecified Vomiting Intractability: non-intractable Qualified Code(s): R11.2 - Nausea with vomiting, unspecified (4) COPD (chronic obstructive pulmonary disease) SNOMED Code(s): 23249330 ICD Code: J44.9 - CHRONIC OBSTRUCTIVE PULMONARY DISEASE, UNSPECIFIED Status : Chronic Priority: Medium Current Visit: Yes Problem Details: Stable by patient history with no current medical therapy, however nebulizer treatments during this hospitalization secondary to possible borderline aspiration pneumonia Qualifiers: COPD type: COPD with acute lower respiratory infection Qualified Code(s): J44.0 - Chronic obstructive pulmonary disease with acute lower respiratory infection (5) Caries SNOMED Code(s): 89591203 ICD Code: K02.9 - DENTAL CARIES, UNSPECIFIED Status: Chronic Priority: Medium Current Visit: Yes Problem Details: Dental evaluation and treatment advisable (6) Hemiparesis SNOMED Code(s): 37190760 ICD Code: G81.90 - HEMIPLEGIA, UNSPECIFIED AFFECTING UNSPECIFIED SIDE Status: Chronic Priority: Medium Current Visit: Yes Problem Details: Distant CVA with chronic left hemiparesis and previous as above. No change in neurological status with previous history of recurrent falls, etc. 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 Standard MRSA culture orders on admission (8) Hyperlipidemia SNOMED Code(s): 70118584 ICD Code: E78.5 - HYPERLIPIDEMIA, UNSPECIFIED Status: Chronic Priority: Medium Current Visit: Yes Problem Details: Lipid panel in a.m. Qualifiers: Hyperlipidemia type: mixed hyperlipidemia Qualified Code(s): E78.2 - Mixed hyperlipidemia (9) Hypertension SNOMED Code(s): 01673084 ICD Code: I10 - ESSENTIAL (PRIMARY) HYPERTENSION Status: Chronic Priority : Medium Current Visit: Yes Problem Details: Pressures under good control in the emergency room Qualifiers: Hypertension type: essential hypertension Qualified Code(s): I10 - Essential (primary) hypertension (10) Mixed anxiety depressive disorder SNOMED Code(s): 442851033 ICD Code: F41.8 - OTHER SPECIFIED ANXIETY DISORDERS Status: Chronic Priority: Medium Current Visit: Yes Problem Details: Stable by patient history. 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 Stable by history (12) Osteoarthritis SNOMED Code(s): 368995870 ICD Code: M19.90 - UNSPECIFIED OSTEOARTHRITIS, UNSPECIFIED SITE Status: Chronic Priority: Medium Current Visit: Yes Problem Details: Stable by history Qualifiers: Osteoarthritis location: multiple joints Osteoarthritis type: primary Qualified Code(s): M15.0 - Primary generalized (osteo)arthritis (13) Peptic reflux disease SNOMED Code(s): 385582736 ICD Code: K21.9 - GASTRO-ESOPHAGEAL REFLUX DISEASE WITHOUT ESOPHAGITIS Status: Chronic Priority: Medium Current Visit: Yes Problem Details: Stable by history with high-dose IV Pepcid and IV Protonix given in the emergency room (14) Normal pressure hydrocephalus SNOMED Code(s): 14060247 ICD Code: G91.2 - (IDIOPATHIC) NORMAL PRESSURE HYDROCEPHALUS Status: Acute Priority: High Current Visit: Yes (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, old, ataxia SNOMED Code(s): 52653653022529 ICD Code: I69.993 - ATAXIA FOLLOWING UNSPECIFIED CEREBROVASCULAR DISEASE Status: Acute Priority: High Current Visit: Yes - Patient Summary/Data Consults: Consultations 08/22/17 12:14 Consult to Physical Therapy [PT Evaluation and Treatment] [CONS] Routine 08/22/17 12:15 Care Management Consult [Consult to Case Management] [CONS] Routine Consult to Occupational Therapy [OT Evaluation and Treatment] [CONS] Routine 08/22/17 14:34 Consult to Speech Language Pathology [[employer] Evaluation and Treatment] [CONS] Routine - Patient Instructions Diet: Regular Diet as Tolerated Activity: As Tolerated Driving: Do Not Drive Showering/Bathing: May Shower - Discharge Plan Home Medications: Home Meds Acetaminophen 650 mg PO Q4H PRN 08/21/17 [History] Acetaminophen [Tylenol] 650 mg PO BID@08/21/17 [History] Aspirin [Ecotrin] 325 mg PO DAILY 08/21/17 [History] Dextran 70/Hypromellose [Artificial Tears] 2 drop EYEBOTH QID PRN 08/21/17 [ History] Donepezil HCl [Aricept] 10 mg PO DAILY 08/21/17 [History] LORazepam [Ativan] 0.5 mg IM DAILY PRN 08/21/17 [History] Lisinopril 10 mg PO DAILY 08/21/17 [History] Loratadine [Claritin] 10 mg PO DAILY 08/21/17 [History] Menthol/Zinc Oxide [Calmoseptine] 1 applic TOP BID PRN 08/21/17 [History] Miconazole Nitrate [Athlete's Foot] 1 applic TOP BID PRN 08/21/17 [History] Multivitamin [Daily Multiple Vitamin] 1 tab PO DAILY 08/21/17 [History] OXcarbazepine [Trileptal] 450 mg PO BID@08/21/17 [History] Trolamine Salicylate [Asper-Flex] 1 applic TOP Q4H PRN 08/21/17 [History] atorvaSTATin [Lipitor] 10 mg PO DAILY@1800 08/21/17 [History] levETIRAcetam [Keppra] 1,500 mg PO BID@08/21/17 [History] Forms: ED Department Discharge Referrals: Shell Baer PA [Primary Care Provider] - - Discharge Summary/Plan Comment DC Time >30 min.: No - Patient Data Vitals - Most Recent: Last Vital Signs Temp 97.9 F 08/24/17 12:00 Pulse 79 08/24/17 12:00 Resp 15 08/24/17 12:00 BP 134/74 08/24/17 12:00 Pulse Ox 93 L 08/24/17 12:00 Weight - Most Recent: 240 lb 9.6 oz I&O - Last 24 hours: Intake & Output 08/23/17 08/24/17 08/24/17 22:59 06:59 14:59 Intake Total 328 120 3882 Output Total 1275 1150 700 Balance -881 -950 860 Lab Results - Last 24 hrs: Laboratory Results - last 24 hr 08/24/17 08/24/17 Range/Units 06:50 06:50 WBC 8.5 (4.0-10.2) K/uL RBC 4.68 (4.33-5.41) M/uL Hgb 14.8 (13.1-16.8) g/dL Hct 42.6 (39.0-49.0) % MCV 91.0 (84.0-98.0) fL MCH 31.6 (28.2-33.3) pg MCHC 34.7 (31.7-36.0) g/dL RDW 12.8 (11.2-14.1) % Plt Count 249 (150-350) K/uL Neut % (Auto) 58.9 (45.0-80.0) % Lymph % (Auto) 16.9 (10.0-50.0) % Morgan % (Auto) 14.0 (2.0-14.0) % Eos % (Auto) 9.6 H (0.0-5.0) % Baso % (Auto) 0.6 (0.0-2.0) % Neut # (Auto) 5.02 (1.40-7.00) K/uL Lymph # (Auto) 1.44 (0.50-3.50) K/uL Morgan # (Auto) 1.19 H (0.00-1.00) K/uL Eos # (Auto) 0.82 H (0.00-0.50) K/uL Baso # (Auto) 0.05 (0.00-0.20) K/uL Sodium 140 (136-145) mmol/L Potassium 4.1 (3.5-5.1) mmol/L Chloride 105 (98-107) mmol/L Carbon Dioxide 25.8 (21.0-32.0) mmol/L BUN 12 (7-18) mg/dL Creatinine 0.88 (0.51-1.17) mg/dL Est Cr Clr Drug Dosing 77.85 mL/min Estimated GFR (MDRD) > 60 mL/min Glucose 102 (74-106) mg/dL Calcium 9.1 (8.5-10.1) mg/dL Total Bilirubin 0.6 (0.2-1.0) mg/dL AST 32 (15-37) U/L ALT 57 (12-78) U/L Alkaline Phosphatase 200 H (46-116) IU/L C-Reactive Protein 1.7 H (<=0.9) mg/dL Total Protein 6.9 (6.4-8.2) g/dL Albumin 3.3 L (3.4-5.0) g/dL [facility] Results - Last 24 hrs: Microbiology 08/21/17 23:00 Gram Stain - Final Sputum - Expectorated Sputum Culture - Final NORMAL RESPIRATORY JULIANE 2 DAYS 08/21/17 18:50 Aerobic Blood Culture - Preliminary Blood - Venous - Lab Draw NO GROWTH AFTER 2 DAYS Anaerobic Blood Culture - Preliminary NO GROWTH AFTER 2 DAYS 08/21/17 18:35 Aerobic Blood Culture - Preliminary Blood - Venous NO GROWTH AFTER 2 DAYS Anaerobic Blood Culture - Preliminary NO GROWTH AFTER 2 DAYS 08/21/17 23:00 MRSA (PCR) - Final Nasal, Left 08/21/17 23:50 Urine Culture - Final Urine, Clean Catch MIXED POSITIVE JULIANE DAY 2 04/20/18 08:30 Stool Occult Blood (TASNEEM) - Final Stool / Feces NEGATIVE OCCULT BLOOD Med Orders - Current: Current Medications Acetaminophen (Tylenol) 650 mg PO Q4H PRN PRN Reason: Pain Last Admin: 08/24/17 06:32 Dose: 650 mg Acetaminophen (Tylenol) 650 mg PO BID@,18 [facility] Last Admin: 08/24/17 07:29 Dose: 650 mg Albuterol (Proventil Neb Soln) 2.5 mg INH Q2H PRN PRN Reason: SHORTNESS OF BREATH Albuterol/Ipratropium (Duoneb 3.0-0.5 Mg/3 Ml) 3 ml NEB Q4HRRT PRN PRN Reason: Dyspnea Last Admin: 08/21/17 21:03 Dose: 3 ml Albuterol/Ipratropium (Duoneb 3.0-0.5 Mg/3 Ml) 3 ml NEB Q6HRRT [facility] Last Admin: 08/24/17 07:28 Dose: Not Given Artificial Tears (Liquitears 1.4% Ophth Soln) 0 ml EYEBOTH QID PRN PRN Reason: DRY EYES Aspirin (Ecotrin) 325 mg PO DAILY [facility] Last Admin: 08/24/17 07:29 Dose: 325 mg Atorvastatin Calcium (Lipitor) 10 mg PO DAILY@1800 [facility] Last Admin: 08/23/17 17:22 Dose: 10 mg Calamine/Phenol (Calmoseptine) 0 gm TOP BID PRN PRN Reason: ITCHING Donepezil HCl (Aricept) 10 mg PO DAILY [facility] Last Admin: 08/24/17 07:29 Dose: 10 mg Famotidine (Pepcid) 20 mg IVPUSH Q12H [facility] Last Admin: 08/24/17 07:30 Dose: 20 mg Ciprofloxacin/Dextrose 200 mg/ (Premix) 100 mls @ 100 mls/hr IV Q12HR [facility] Last Admin: 08/24/17 07:30 Dose: 100 mls/hr Metronidazole 500 mg/ Premix 100 mls @ 100 mls/hr IV Q8H [facility] Last Admin: 08/24/17 10:01 Dose: 100 mls/hr Levetiracetam (Keppra) 1,500 mg PO BID@0800,1800 [facility] Last Admin: 08/24/17 07:28 Dose: 1,500 mg Lisinopril (Prinivil) 10 mg PO DAILY [facility] Last Admin: 08/24/17 07:29 Dose: 10 mg Loratadine (Claritin) 10 mg PO DAILY [facility] Last Admin: 08/24/17 07:28 Dose: 10 mg Lorazepam (Ativan) 0.5 mg PO DAILY PRN PRN Reason: Seizures Multivitamins/Minerals/Vitamin C (Tab-A-Johnny) 1 tab PO DAILY [facility] Last Admin: 08/24/17 07:29 Dose: 1 tab Non-Formulary Medication (Miconazole Nitrate [Athlete's Foot]) 1 applic TOP BID PRN PRN Reason: Athletes foot Ondansetron HCl (Zofran) 4 mg IVPUSH Q6H PRN PRN Reason: Nausea/Vomiting Oxcarbazepine (Trileptal) 450 mg PO BID@ [facility] Last Admin: 08/24/17 07:29 Dose: 450 mg Pantoprazole Sodium (Protonix Iv) 40 mg IVPUSH Q12H [facility] Last Admin: 08/24/17 07:30 Dose: 40 mg Sodium Chloride (Saline Flush) 10 ml FLUSH ASDIRECTED PRN PRN Reason: Keep Vein Open Last Admin: 08/24/17 10:01 Dose: 10 ml Sodium Chloride (Saline Flush) 10 ml FLUSH Q12HR [facility] Last Admin: 08/24/17 07:31 Dose: 10 ml Temazepam (Restoril) 15 mg PO DAILY@2000 PRN PRN Reason: Insomnia Trolamine Salicylate (Aspercreme 10%) 0 gm TOP Q4H PRN PRN Reason: Pain Discontinued Medications Acetaminophen (Tylenol) 650 mg PO NOW ONE Stop: 08/21/17 18:39 Last Admin: 08/21/17 18:52 Dose: 650 mg Famotidine (Pepcid) 40 mg IVPUSH ONETIME ONE Stop: 08/21/17 17:52 Last Admin: 08/21/17 18:52 Dose: 40 mg Metronidazole 500 mg/ Premix 100 mls @ 100 mls/hr IV Q8H [facility] Last Admin: 08/21/17 18:52 Dose: 100 mls/hr Metronidazole (Flagyl 500 Mg In Ns 100 Ml) Confirm Administered Dose 100 mls @ as directed .ROUTE .STK-MED ONE Stop: 08/21/17 18:49 Last Admin: 08/21/17 18:56 Dose: Not Given Potassium Chloride/Dextrose/Sod Cl (D5 1/2 Ns W/ 20 Meq/L Kcl) 1,000 mls @ 75 mls/hr IV ASDIRECTED [facility] Last Admin: 08/23/17 00:18 Dose: 75 mls/hr Metronidazole 500 mg/ Premix 100 mls @ 100 mls/hr IV Q8H [facility] Levetiracetam (Keppra) 1,500 mg PO ONETIME ONE Stop: 08/21/17 21:16 Last Admin: 08/21/17 21:23 Dose: 1,500 mg Ondansetron HCl (Zofran) 4 mg IVPUSH ONETIME ONE Stop: 08/21/17 17:52 Last Admin: 08/21/17 18:52 Dose: 4 mg Oxcarbazepine (Trileptal) 450 mg PO ONETIME ONE Stop: 08/21/17 21:16 Last Admin: 08/21/17 21:23 Dose: 450 mg Pantoprazole Sodium (Protonix Iv) 40 mg IVPUSH ONETIME ONE Stop: 08/21/17 17:52 Last Admin: 08/21/17 18:52 Dose: 40 mg
== END 2017-08-24 14:45 | DRG 178 ==
LOC: LL.ED 17:46 → LL.MS 19:28
PROVIDERS: ADMIT Family Medicine; ATTEND Family Medicine
DX: R50.9 Fever, unspecified (principal); R41.82 Altered mental status, unspecified; F09 Unspecified mental disorder due to known physiological condition; R51 Headache; R41.0 Disorientation, unspecified; R53.1 Weakness; J69.0 Pneumonitis due to inhalation of food and vomit; H54.7 Unspecified visual loss; I69.354 Hemiplegia and hemiparesis following cerebral infarction affecting left non-dominant side; G91.2 (Idiopathic) normal pressure hydrocephalus; I69.393 Ataxia following cerebral infarction; J44.9 Chronic obstructive pulmonary disease, unspecified; G40.909 Epilepsy, unspecified, not intractable, without status epilepticus; E78.2 Mixed hyperlipidemia; J84.10 Pulmonary fibrosis, unspecified; K44.9 Diaphragmatic hernia without obstruction or gangrene; K29.70 Gastritis, unspecified, without bleeding; K21.9 Gastro-esophageal reflux disease without esophagitis; N40.0 Benign prostatic hyperplasia without lower urinary tract symptoms; I12.9 Hypertensive chronic kidney disease with stage 1 through stage 4 chronic kidney disease, or unspecified chronic kidney disease; N18.9 Chronic kidney disease, unspecified; G30.9 Alzheimer's disease, unspecified; F02.80 Dementia in other diseases classified elsewhere, unspecified severity, without behavioral disturbance, psychotic disturbance, mood disturbance, and anxiety; G31.2 Degeneration of nervous system due to alcohol; E83.42 Hypomagnesemia; R79.89 Other specified abnormal findings of blood chemistry; R73.9 Hyperglycemia, unspecified; M15.9 Polyosteoarthritis, unspecified; F41.8 Other specified anxiety disorders; B35.4 Tinea corporis; K02.9 Dental caries, unspecified; J30.9 Allergic rhinitis, unspecified; H04.129 Dry eye syndrome of unspecified lacrimal gland; Z98.2 Presence of cerebrospinal fluid drainage device; Z88.6 Allergy status to analgesic agent; Z88.0 Allergy status to penicillin; Z88.8 Allergy status to other drugs, medicaments and biological substances; Z87.440 Personal history of urinary (tract) infections; Z86.14 Personal history of Methicillin resistant Staphylococcus aureus infection; Z86.010 Personal history of colon polyps; Z87.891 Personal history of nicotine dependence; Z79.82 Long term (current) use of aspirin; Z79.899 Other long term (current) drug therapy
CPT/HCPCS: 36415; 70450; 74022; 76700; 80053; 80061; 80177; 80183; 81001; 82150; 82272; 83036; 83605; 83690; 83735; 84550; 85025; 85610; 85730; 86140; 87040; 87070; 87086; 87205; 87338; 87641; 87804; 92526-GN; 92610-GN; 94640; 96365; 96375; 97162-GP; 97530-GP; 99285; A9270-GY; C9113; J0744; J2405; J3480; J7050; S0028

== ENCOUNTER 2018-01-01 15:39 | Inpatient (IN) | payer MEDICARE, BC, MEDICAID ==
[2018-01-01] MEDS ORDERED: Acetaminophen 325 MG Tab PO PRN (16:28)
[2018-01-01] MEDS ORDERED: Miconazole 2% Crm 30 GM Tube TOP PRN (16:28)
[2018-01-01] MEDS: Clindamycin Phosphate 600 MG in Sodium Chloride 0.9% 100 ML IV SCH ×2 (16:49→23:58)
[2018-01-01] MEDS: Sodium Chloride 0.9% 10 ML Syringe FLUSH PRN ×3 (16:50→23:57)
[2018-01-01] MEDS ORDERED: Polyvinyl Alcohol 1.4% Ophth Soln 15 ML Bottle EYEBOTH PRN (17:00)
[2018-01-01] MEDS ORDERED: Trolamine Salicylate/Aloe Vera 10% Crm 85 GM Tube TOP PRN (17:00)
--- NOTE | 2018-01-01 17:06 | PCM.HP ---
H&P History of Present Illness - General Date of Service: 01/01/18 Admit Problem/Dx: Admission Diagnosis/Problem Admission Diagnosis/Problem Cellulitis LLE Cellulitis Source of Information: Patient, [facility] Records History Limitations: Reports: No Limitations - History of Present Illness Onset of Symptoms: Reports: Today Duration of Symptoms: Reports: Hour(s): (just noticed the redness, swelling and pain this morning - worsening rapidly ) Location: Reports: Lower Extremity, Left Quality: Reports: Ache Severity: Moderate Improves with: Reports: None Worsens with: Reports: Movement Associated Symptoms: Reports: No Other Symptoms - Related Data Allergies/Adverse Reactions: Allergies Allergy/AdvReac Type Severity Reaction Status Date / Time Penicillins Allergy Cannot Verified 11/02/17 18:22 Remember povidone-iodine Allergy Cannot Verified 11/02/17 18:22 [From Betadine] Remember soap [From Betadine] Allergy Cannot Verified 11/02/17 18:22 Remember tramadol Allergy Cannot Verified 11/02/17 18:22 Remember Home Medications: Home Meds Acetaminophen 650 mg PO Q4H PRN 08/21/17 [History] Acetaminophen [Tylenol] 650 mg PO BID@08/21/17 [History] Aspirin [Ecotrin] 325 mg PO DAILY 08/21/17 [History] Dextran 70/Hypromellose [Artificial Tears] 2 drop EYEBOTH QID PRN 08/21/17 [ History] Donepezil HCl [Aricept] 10 mg PO DAILY 08/21/17 [History] LORazepam [Ativan] 0.5 mg IM DAILY PRN 08/21/17 [History] Lisinopril 10 mg PO DAILY 08/21/17 [History] Loratadine [Claritin] 10 mg PO DAILY 08/21/17 [History] Menthol/Zinc Oxide [Calmoseptine] 1 applic TOP BID PRN 08/21/17 [History] Miconazole Nitrate [Athlete's Foot] 1 applic TOP BID PRN 08/21/17 [History] Multivitamin [Daily Multiple Vitamin] 1 tab PO DAILY 08/21/17 [History] OXcarbazepine [Trileptal] 450 mg PO BID@,18 08/21/17 [History] Trolamine Salicylate [Asper-Flex] 1 applic TOP Q4H PRN 08/21/17 [History] atorvaSTATin [Lipitor] 10 mg PO DAILY@1800 08/21/17 [History] levETIRAcetam [Keppra] 1,500 mg PO BID@08/21/17 [History] Terbinafine HCl 250 mg PO DAILY 01/01/18 [History] Past Medical History HEENT History: Reports: Allergic Rhinitis, Cataract, Impaired Vision, Other ( See Below) Other HEENT History: Dry eye syndrome. Patient wears glasses. Nasal fracture as below. Cardiovascular History: Reports: High Cholesterol, Hypertension, Other (See Below) Other Cardiovascular History: Mixed hyperlipidemia Respiratory History: Reports: Bronchitis, Recurrent, COPD, Intubation, Previous , Pulmonary Fibrosis Gastrointestinal History: Reports: Colon Polyp, Gastritis, GERD, Hiatal Hernia, Other (See Below) Other Gastrointestinal History: Tubular adenoma in the sigmoid colon area esophagitis Genitourinary History: Reports: BPH, Chronic Renal Insuffiency, UTI, Recurrent Musculoskeletal History: Reports: Arthritis, Back Pain, Chronic, Fracture, Osteoarthritis, Other (See Below) Other Musculoskeletal History: Nasal fracture in the Neurological History: Reports: Alzheimers Disease, Brain Injury, CVA, Seizure, Other (See Below) Other Neuro History: Postoperative right-sided CVA with subdural hematomas and secondary hydrocephalus with chronic left hemiparesis including the facial region requiring leg brace therapy after shunt placement for hydrocephalus in 2004 as below. 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 Psychiatric History: Reports: Alzheimers Disease, Anxiety, Dementia, Depression Immunologic History: Reports: None Oncologic (Cancer) History: Reports: None Dermatologic History: Reports: Other (See Below) Other Dermatologic History: Recurrent tinea corporis, chronic left heel ulcer - Infectious Disease History Infectious Disease History: Reports: Measles, MRSA, Mumps, Other (See Below) Other Infectious Disease History: Patient is uncertain about childhood illnesses. History of MRSA of the left foot in 2017 - Past Surgical History Head Surgeries/Procedures: Reports: Shunt HEENT Surgical History: Reports: Adenoidectomy, Naso-Sinus Surgery, Oral Surgery , Tonsillectomy, Other (See Below) Other HEENT Surgeries/Procedures: Unknown type of nasal sinus surgery in the GI Surgical History: Reports: Appendectomy, Colonoscopy, Polypectomy, Other ( See Below) Other GI Surgeries/Procedures: Appendectomy at about age 17. Colonoscopy in the excision of tubular adenoma from the sigmoid colon Male Surgical History: Reports: Circumcision, Vasectomy, Other (See Below) Other Male Surgeries/Procedures: Circumcision as an . Vasectomy in about 1976 Musculoskeletal Surgical History: Reports: None, Arthroscopic Knee, Arthroscopic Procedure, Other (See Below) Other Musculoskeletal Surgeries/Procedures:: Bilateral knee arthroscopic repair Oncologic Surgical History: Reports: None - Past Imaging History Past Imaging History: Reports: CAT Scan (CT of the head on 09/03/11), EEG (), MRA (As below), MRI (MRI and MRA of the brain on 11/20/11), Venous Doppler ( Venous Doppler study of the right leg on 02/06/16 with additional evaluation of the left leg on 07/12/16) Social & Family History - Family History Family Medical History: Unobtainable Cardiac: Reports: CAD, MT, Other (See Below) Other Cardiac Family History: Father with MT in his 60s Neurological: Reports: Other (See Below) Other Neurological Family History: Brother from meningitis at age 18 - Caffeine Use Caffeine Use: Reports: Soda. 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 Exam - Exam Exam: See Below - Vital Signs Vital Signs: Last Vital Signs Temp 102.4 F H 01/01/18 15:57 Pulse 110 H 01/01/18 15:57 Resp 20 01/01/18 15:57 BP 135/70 01/01/18 15:57 Pulse Ox 94 L 01/01/18 15:57 Weight: 244 lb 8 oz - Exam General: Alert, Oriented, 4 HEENT: Mucosa Moist & [place] Neck: Supple, Trachea Midline Lungs: Clear to Auscultation, Normal Respiratory Effort Cardiovascular: Regular Rate, Regular Rhythm GI/Abdominal Exam: Normal Bowel Sounds, Soft, Non-Tender (Male) Exam: Deferred Rectal (Males) Exam: Deferred Back Exam: Normal Inspection Extremities: Leg Pain (left lower leg deeply erythematous, swollen and hot to touch), Increased Warmth, Redness, Other (chronic left lateral heel ulcer) Neuro Extensive - Mental Status: Alert, Oriented x3, Normal Mood/Affect, Normal Cognition, Memory Intact Neuro Extensive - Motor, Sensory, Reflexes: Other (wheelchair) Psychiatric: Alert, Normal Affect, Normal Mood Problem List Initiated/Reviewed/Updated: Yes Orders Last 24hrs: Active Orders 24 hr Category Date Time Status Patient Status [ADT] Routine ADT 01/01/18 15:57 Ordered Bedrest Bathroom Privileges [RC] ASDIRECTED Care 01/01/18 15:57 Ordered Height and Weight [RC] UPON Care 01/01/18 15:57 Ordered Intake and Output [RC] QSHIFT Care 01/01/18 16:00 Ordered May Shower [RC] ASDIRECTED Care 01/01/18 15:57 Ordered Oxygen Therapy [RC] PRN Care 01/01/18 15:57 Ordered Up With Assistance [RC] ASDIRECTED Care 01/01/18 15:57 Ordered VTE/DVT Education [RC] PER UNIT ROUTINE Care 01/01/18 15:57 Ordered Vital Signs [RC] Q4H Care 01/01/18 15:57 Ordered Pharmacy Consult [Consult to Pharmacy] [CONS] Routine Cons 01/01/18 16:14 Ordered Regular Diet [DIET] Diet 01/01/18 Dinner Ordered C-REACTIVE PROTEIN [CHEM] AM Lab 01/02/18 05:11 Ordered C-REACTIVE PROTEIN [CHEM] AM Lab 01/03/18 05:11 Ordered C-REACTIVE PROTEIN [CHEM] AM Lab 01/04/18 05:11 Ordered CBC WITH AUTO DIFF [HEME] AM Lab 01/02/18 05:11 Ordered CBC WITH AUTO DIFF [HEME] AM Lab 01/03/18 05:11 Ordered CBC WITH AUTO DIFF [HEME] AM Lab 01/04/18 05:11 Ordered COMPREHENSIVE METABOLIC PN,CMP [CHEM] AM Lab 01/02/18 05:11 Ordered COMPREHENSIVE METABOLIC PN,CMP [CHEM] AM Lab 01/03/18 05:11 Ordered COMPREHENSIVE METABOLIC PN,CMP [CHEM] AM Lab 01/04/18 05:11 Ordered CULTURE BLOOD [BC] Stat Lab 01/01/18 16:02 Ordered CULTURE BLOOD [BC] Stat Lab 01/01/18 16:02 Ordered CULTURE WOUND [RM] Routine Lab 01/01/18 16:09 Ordered VANCOMYCIN TROUGH [CHEM] Routine Lab 01/03/18 05:30 Ordered Acetaminophen [Tylenol] Med 01/01/18 18:00 Ordered 650 mg PO BID@08,18 Acetaminophen [Tylenol] Med 01/01/18 16:28 Ordered 650 mg PO Q4H PRN Aspirin [Ecotrin] Med 01/02/18 08:00 Ordered 325 mg PO DAILY Clindamycin Phosphate [Cleocin] 600 mg Med 01/01/18 16:30 Ordered Sodium Chloride 0.9% [Normal Saline] 100 ml IV Q8H Dextran 70/Hypromellose [Artificial Tears] Med 01/01/18 16:28 Ordered 2 drop EYEBOTH QID PRN Donepezil [Aricept] Med 01/02/18 08:00 Ordered 10 mg PO DAILY LORazepam [Ativan] Med 01/01/18 16:28 Ordered See Dose Instructions .XX DAILY PRN Lisinopril [Prinivil] Med 01/02/18 08:00 Ordered 10 mg PO DAILY Loratadine [Claritin] Med 01/02/18 08:00 Ordered 10 mg PO DAILY Menthol/Zinc Oxide [Calmoseptine] Med 01/01/18 16:28 Ordered 1 applic TOP BID PRN Miconazole Nitrate [Athlete's Foot] Med 01/01/18 16:28 Ordered 1 applic TOP BID PRN Multivitamins [Tab-A-Johnny] Med 01/02/18 08:00 Ordered 1 tab PO DAILY OXcarbazepine [Trileptal] Med 01/01/18 18:00 Ordered 450 mg PO BID@18 Sodium Chloride 0.9% [Saline Flush] Med 01/01/18 15:57 Ordered 10 ml FLUSH ASDIRECTED PRN Terbinafine [LamISIL] Med 01/02/18 08:00 Ordered 250 mg PO DAILY Trolamine Salicylate/Aloe Vera [Aspercreme 10%] Med 01/01/18 16:28 Ordered 1 applic TOP Q4H PRN Vancomycin 1.5 gm Med 01/01/18 18:00 Active Sodium Chloride 0.9% [Normal Saline] 250 ml IV Q12H Vancomycin Pharmacy to Dose [Pharmacy to Dose - Med 01/01/18 17:00 Pending Vancomycin] 1 dose .XX ASDIRECTED atorvaSTATin [Lipitor] Med 01/01/18 18:00 Ordered 10 mg PO DAILY@1800 levETIRAcetam [Keppra] Med 01/01/18 18:00 Ordered 1,500 mg PO BID@08,18 Blood Culture x2 Reflex Set [OM.PC] Stat Oth 01/01/18 15:57 Ordered Saline Lock Insert [OM.PC] Routine Oth 01/01/18 15:57 Ordered Resuscitation Status Routine Resus Stat 01/01/18 15:57 Ordered Medication Orders Acetaminophen (Tylenol) 650 mg PO Q4H PRN PRN Reason: Pain Acetaminophen (Tylenol) 650 mg PO BID [facility] Artificial Tears (Liquitears 1.4% Ophth Soln) 0 ml EYEBOTH QID PRN PRN Reason: DRY EYES Aspirin (Ecotrin) 325 mg PO DAILY [facility] Atorvastatin Calcium (Lipitor) 10 mg PO DAILY@1800 [facility] Donepezil HCl (Aricept) 10 mg PO DAILY [facility] Clindamycin Phosphate 600 mg/ (Sodium Chloride) 104 mls @ 200 mls/hr IV Q8H [facility] Last Admin: 01/01/18 16:49 Dose: 200 mls/hr Vancomycin HCl 1.5 gm/ Sodium (Chloride) 250 mls @ 125 mls/hr IV Q12H [facility] Levetiracetam (Keppra) 1,500 mg PO BID [facility] Lisinopril (Prinivil) 10 mg PO DAILY [facility] Loratadine (Claritin) 10 mg PO DAILY [facility] Lorazepam (Ativan) 0 mg .XX DAILY PRN PRN Reason: Seizures Multivitamins/Minerals/Vitamin C (Tab-A-Johnny) 1 tab PO DAILY [facility] Non-Formulary Medication (Menthol/Zinc Oxide [Calmoseptine]) 1 applic TOP BID PRN PRN Reason: Itching Non-Formulary Medication (Miconazole Nitrate [Athlete's Foot]) 1 applic TOP BID PRN PRN Reason: Athletes foot Oxcarbazepine (Trileptal) 450 mg PO BID [facility] Sodium Chloride (Saline Flush) 10 ml FLUSH ASDIRECTED PRN PRN Reason: Keep Vein Open Last Admin: 01/01/18 16:50 Dose: 10 ml Terbinafine HCl (Lamisil) 250 mg PO DAILY [facility] Trolamine Salicylate (Aspercreme 10%) 0 gm TOP Q4H PRN PRN Reason: PAIN Vancomycin HCl (Pharmacy To Dose - Vancomycin) 1 dose .XX ASDIRECTED [facility] Assessment/Plan Comment:: 01-01-18 Pedrito Baer PA-C Admitting to IP status for acute treatment of LLE Cellulitis. Just this morning patient and staff noticed redness, swelling and pain to LLE which has worsened rapidly throughout the day. White count markedly elevated at 24,200 with 95% segs on a manual differential. Patient has had a chronic left heel ulcer, the healing of which has been significantly negatively impacted by his persistent refusal to remove the leg brace, shoes and socks. He wears the leg brace because of hemiplegia secondary to CVA. Just yesterday did see Dr. Day, [employer]. Consulted Dr. Saleh at the time of admit. Starting IV Vancomycin and Clindamycin after blood cultures drawn. This complex patient will require at least 96 hours of IP treatment, then hopefully will have improved to the point we can transfer back to [facility].
[2018-01-01] MEDS: levETIRAcetam 500 MG Tab PO SCH (17:21)
[2018-01-01] MEDS: OXcarbazepine 300 MG Tab PO SCH (17:21)
[2018-01-01] MEDS: atorvaSTATin 10 MG Tab PO SCH (17:21)
[2018-01-01] MEDS: Acetaminophen 325 MG Tab PO SCH (17:22)
[2018-01-01] MEDS ORDERED: LORazepam 2 MG/ML SDV IM PRN (17:30)
[2018-01-01] MEDS ORDERED: Menthol/Zinc Oxide Ointment 113 GM Tube TOP PRN (17:45)
[2018-01-01] MEDS ORDERED: Ketorolac 30 MG/ML SDV IVPUSH ONE (23:32)
[2018-01-01] MEDS ORDERED: Sodium Chloride 0.9% 1,000 ML IV SCH (23:45)
[2018-01-02] MEDS ORDERED: Lisinopril 10 MG Tab PO SCH (08:00)
[2018-01-02] MEDS: Clindamycin Phosphate 600 MG in Sodium Chloride 0.9% 100 ML IV SCH ×2 (08:58→16:16)
[2018-01-02] MEDS: levETIRAcetam 500 MG Tab PO SCH ×2 (08:58→17:41)
[2018-01-02] MEDS: Aspirin 325 MG Tab.EC PO SCH (08:59)
[2018-01-02] MEDS: Acetaminophen 325 MG Tab PO SCH ×2 (08:59→17:41)
[2018-01-02] MEDS: Loratadine 10 MG Tab PO SCH (08:59)
[2018-01-02] MEDS: Multivitamin Tab PO SCH (08:59)
[2018-01-02] MEDS: Donepezil 10 MG Tab PO SCH (08:59)
[2018-01-02] MEDS: OXcarbazepine 300 MG Tab PO SCH ×2 (08:59→17:42)
[2018-01-02] MEDS: Terbinafine 250 MG Tab PO SCH (09:02)
--- NOTE | 2018-01-02 15:55 | PCM.PN ---
- General Info Date of Service: 01/02/18 Admission Dx/Problem (Free Text): Admission Diagnosis/Problem Admission Diagnosis/Problem Cellulitis LLE Cellulitis Functional Status: Reports: Pain Controlled (left leg feels better today) - Review of Systems General: Reports: Fever HEENT: Reports: No Symptoms Pulmonary: Reports: No Symptoms Cardiovascular: Reports: No Symptoms Gastrointestinal: Reports: No Symptoms Genitourinary: Reports: No Symptoms Musculoskeletal: Reports: Leg Pain Skin: Reports: Rash (left lower extremity is red hot swollen, angry red) Neurological: Reports: Pre-Existing Deficit Psychiatric: Reports: No Symptoms - Patient Data Vitals - Most Recent: Last Vital Signs Temp 99.0 F 01/02/18 12:00 Pulse 94 01/02/18 12:00 Resp 16 01/02/18 12:00 BP 129/65 01/02/18 12:00 Pulse Ox 95 01/02/18 12:00 Weight - Most Recent: 244 lb 8 oz I&O - Last 24 Hours: Intake & Output 01/02/18 01/02/18 01/02/18 06:59 14:59 22:59 Intake Total 603 650 Output Total 325 225 Balance 603 325 -225 Lab Results Last 24 Hours: Laboratory Results - last 24 hr 01/02/18 01/02/18 Range/Units 06:45 06:45 WBC 18.1 H (4.0-10.2) K/uL RBC 4.50 (4.33-5.41) M/uL Hgb 14.1 (13.1-16.8) g/dL Hct 42.4 (39.0-49.0) % MCV 94.2 D (84.0-98.0) fL MCH 31.3 (28.2-33.3) pg MCHC 33.3 (31.7-36.0) g/dL RDW 13.4 (11.2-14.1) % Plt Count 225 (150-350) K/uL Neut % (Auto) 90.4 H (45.0-80.0) % Lymph % (Auto) 3.6 L (10.0-50.0) % [place] % (Auto) 5.8 (2.0-14.0) % Eos % (Auto) 0.0 (0.0-5.0) % Baso % (Auto) 0.2 (0.0-2.0) % Neut # (Auto) 16.34 H (1.40-7.00) K/uL Lymph # (Auto) 0.66 (0.50-3.50) K/uL [place] # (Auto) 1.05 H (0.00-1.00) K/uL Eos # (Auto) 0.00 (0.00-0.50) K/uL Baso # (Auto) 0.04 (0.00-0.20) K/uL Sodium 141 (136-145) mmol/L Potassium 3.8 (3.5-5.1) mmol/L Chloride 107 (98-107) mmol/L Carbon Dioxide 26.4 (21.0-32.0) mmol/L BUN 22 H (7-18) mg/dL Creatinine 1.20 H (0.51-1.17) mg/dL Est Cr Clr Drug Dosing 58.30 mL/min Estimated GFR (MDRD) 60 mL/min Glucose 131 H (74-106) mg/dL Calcium 9.3 (8.5-10.1) mg/dL Total Bilirubin 0.5 (0.2-1.0) mg/dL AST 62 H (15-37) U/L ALT 102 H (12-78) U/L Alkaline Phosphatase 195 H (46-116) IU/L C-Reactive Protein 25.2 H (<=0.9) mg/dL Total Protein 6.8 (6.4-8.2) g/dL Albumin 2.9 L (3.4-5.0) g/dL Med Orders - Current: Current Medications Acetaminophen (Tylenol) 650 mg PO Q4H PRN PRN Reason: Pain Last Admin: 01/01/18 22:09 Dose: 650 mg Acetaminophen (Tylenol) 650 mg PO BID [facility] Last Admin: 01/02/18 08:59 Dose: 650 mg Artificial Tears (Liquitears 1.4% Ophth Soln) 0 ml EYEBOTH QID PRN PRN Reason: DRY EYES Aspirin (Ecotrin) 325 mg PO DAILY [facility] Last Admin: 01/02/18 08:59 Dose: 325 mg Atorvastatin Calcium (Lipitor) 10 mg PO DAILY@1800 [facility] Last Admin: 01/01/18 17:21 Dose: 10 mg Calamine/Phenol (Calmoseptine) 0 gm TOP BID PRN PRN Reason: Itching Donepezil HCl (Aricept) 10 mg PO DAILY [facility] Last Admin: 01/02/18 08:59 Dose: 10 mg Clindamycin Phosphate 600 mg/ (Sodium Chloride) 104 mls @ 200 mls/hr IV Q8H [facility] Last Admin: 01/02/18 08:58 Dose: 200 mls/hr Vancomycin HCl 1.5 gm/ Sodium (Chloride) 250 mls @ 125 mls/hr IV Q12H [facility] Last Admin: 01/02/18 06:08 Dose: 125 mls/hr Levetiracetam (Keppra) 1,500 mg PO BID [facility] Last Admin: 01/02/18 08:58 Dose: 1,500 mg Loratadine (Claritin) 10 mg PO DAILY [facility] Last Admin: 01/02/18 08:59 Dose: 10 mg Lorazepam (Ativan) 0.5 mg IM DAILY PRN PRN Reason: Seizure lasting > 5 minutes Multivitamins/Minerals/Vitamin C (Tab-A-Johnny) 1 tab PO DAILY [facility] Last Admin: 01/02/18 08:59 Dose: 1 tab Oxcarbazepine (Trileptal) 450 mg PO BID [facility] Last Admin: 01/02/18 08:59 Dose: 450 mg Sodium Chloride (Saline Flush) 10 ml FLUSH ASDIRECTED PRN PRN Reason: Keep Vein Open Last Admin: 01/01/18 23:57 Dose: 10 ml Sodium Chloride (Saline Flush) 10 ml FLUSH Q12HR [facility] Terbinafine HCl (Lamisil) 250 mg PO DAILY [facility] Last Admin: 01/02/18 09:02 Dose: 250 mg Trolamine Salicylate (Aspercreme 10%) 0 gm TOP Q4H PRN PRN Reason: PAIN Vancomycin HCl (Pharmacy To Dose - Vancomycin) 1 dose .XX ASDIRECTED [facility] Discontinued Medications Sodium Chloride (Normal Saline) 1,000 mls @ 70 mls/hr IV ASDIRECTED [facility] Last Admin: 01/01/18 23:58 Dose: 70 mls/hr Ketorolac Tromethamine (Toradol) 30 mg IVPUSH ONETIME ONE Stop: 01/01/18 23:33 Last Admin: 01/01/18 23:57 Dose: 30 mg Lisinopril (Prinivil) 10 mg PO DAILY [facility] Last Admin: 01/02/18 08:59 Dose: 10 mg Miconazole (Miconazole 2% Crm) 1 gm TOP BID PRN PRN Reason: Athletes foot - Exam General: Alert, Cooperative, No Acute Distress HEENT: Mucous Membr. Moist/[place] Neck: Trachea Midline, No JVD Lungs: Clear to Auscultation, Normal Respiratory Effort Cardiovascular: Regular Rate, Regular Rhythm GI/Abdominal Exam: Soft, Non-Tender, No Distention (Male) Exam: Deferred Back Exam: Normal Inspection Extremities: Pedal Edema (left), Increased Warmth (LLE), Redness (LLE) Skin: Warm, Dry, Intact, Rash (LLE) Wound/Incisions: Healing Well (left heel), No Drainage, Erythema Improving ( left heel) Neurological: Other (pre-existing deficit) Psy/Mental Status: Alert, Labile Mood (at times), Other (forced speech at times , poor judgement into his health issues) - Problem List & Annotations (1) Cellulitis and abscess of left leg SNOMED Code(s): 237509846 Code(s): L03.116 - CELLULITIS OF LEFT LOWER LIMB; L02.416 - CUTANEOUS ABSCESS OF LEFT LOWER LIMB Status: Acute Priority: High Current Visit: Yes (2) CVA, old, ataxia SNOMED Code(s): 94941670452635 Code(s): I69.993 - ATAXIA FOLLOWING UNSPECIFIED CEREBROVASCULAR DISEASE Status: Acute Priority: High Current Visit: No (3) Fever SNOMED Code(s): 474408084 Code(s): R50.9 - FEVER, UNSPECIFIED Status: Acute Priority: High Current Visit: No Qualifiers: Encounter type: initial encounter (4) Normal pressure hydrocephalus SNOMED Code(s): 32679181 Code(s): G91.2 - (IDIOPATHIC) NORMAL PRESSURE HYDROCEPHALUS Status: Acute Priority: High Current Visit: No (5) Seizure disorder SNOMED Code(s): 497055685 Code(s): G40.909 - EPILEPSY, UNSP, NOT INTRACTABLE, WITHOUT STATUS EPILEPTICUS Status: Acute Priority: Low Current Visit: No (6) COPD (chronic obstructive pulmonary disease) SNOMED Code(s): 23823216 Code(s): J44.9 - CHRONIC OBSTRUCTIVE PULMONARY DISEASE, UNSPECIFIED Status : Chronic Priority: Medium Current Visit: No Qualifiers: COPD type: COPD with acute lower respiratory infection Qualified Code(s): J44.0 - Chronic obstructive pulmonary disease with acute lower respiratory infection Annotation/Comment:: Stable by patient history with no current medical therapy, however nebulizer treatments during this hospitalization secondary to possible borderline aspiration pneumonia (7) Caries SNOMED Code(s): 02247212 Code(s): K02.9 - DENTAL CARIES, UNSPECIFIED Status: Chronic Priority: Medium Current Visit: No Annotation/Comment:: Dental evaluation and treatment advisable (8) Elevated LFTs SNOMED Code(s): 425056812, 119276342 Code(s): R79.89 - OTHER SPECIFIED ABNORMAL FINDINGS OF BLOOD CHEMISTRY Status: Chronic Priority: Medium Current Visit: No Annotation/Comment:: Possibly secondary to fatty liver and/or previous history of alcohol abuse. Further workup depending on his clinical course (9) Hemiparesis SNOMED Code(s): 45777404 Code(s): G81.90 - HEMIPLEGIA, UNSPECIFIED AFFECTING UNSPECIFIED SIDE Status : Chronic Priority: Medium Current Visit: No Qualifiers: Hemiparesis etiology: late effect of cerebrovascular disease Cerebrovascular disease type: nontraumatic intracerebral hemorrhage Hemiparesis laterality: right dominant side Qualified Code(s): I69.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 No change in neurological status with previous history of recurrent falls , etc. (10) History of MRSA infection SNOMED Code(s): 679268027, 794371464 Code(s): Z86.14 - PERSONAL HISTORY OF METHICILLIN RESIS STAPH INFECTION Status: Chronic Current Visit: No Annotation/Comment:: History of MRSA infection with current custodial placement. Standard MRSA culture orders on admission (11) Hyperlipidemia SNOMED Code(s): 26008629 Code(s): E78.5 - HYPERLIPIDEMIA, UNSPECIFIED Status: Chronic Priority: Medium Current Visit: No Qualifiers: Hyperlipidemia type: mixed hyperlipidemia Qualified Code(s): E78.2 - Mixed hyperlipidemia Annotation/Comment:: Lipid panel in a.m. (12) Hypertension SNOMED Code(s): 99993593 Code(s): I10 - ESSENTIAL (PRIMARY) HYPERTENSION Status: Chronic Priority : Medium Current Visit: No Qualifiers: Hypertension type: essential hypertension Qualified Code(s): I10 - Essential (primary) hypertension Annotation/Comment:: Pressures under good control in the emergency room (13) Mixed anxiety depressive disorder SNOMED Code(s): 095925043 Code(s): F41.8 - OTHER SPECIFIED ANXIETY DISORDERS Status: Chronic Priority: Medium Current Visit: No Annotation/Comment:: Stable by patient history. Note history of alcohol abuse in the past (14) Organic brain syndrome (chronic) SNOMED Code(s): 517593679 Code(s): F09 - UNSP MENTAL DISORDER DUE TO KNOWN PHYSIOLOGICAL CONDITION Status: Chronic Priority: Medium Current Visit: No Annotation/Comment:: Organic brain syndrome versus alcoholic encephalopathy. Stable by history (15) Osteoarthritis SNOMED Code(s): 709346606 Code(s): M19.90 - UNSPECIFIED OSTEOARTHRITIS, UNSPECIFIED SITE Status: Chronic Priority: Medium Current Visit: No Qualifiers: Osteoarthritis location: multiple joints Osteoarthritis type: primary Qualified Code(s): M15.0 - Primary generalized (osteo)arthritis Annotation/Comment:: Stable by history (16) Peptic reflux disease SNOMED Code(s): 627195574 Code(s): K21.9 - GASTRO-ESOPHAGEAL REFLUX DISEASE WITHOUT ESOPHAGITIS Status: Chronic Priority: Medium Current Visit: No Annotation/Comment:: Stable by history with high-dose IV Pepcid and IV Protonix given in the emergency room - Problem List Review Problem List Initiated/Reviewed/Updated: Yes - My Orders Last 24 Hours: My Active Orders 01/02/18 12:39 Consult to Physical Therapy [PT Evaluation and Treatment] [CONS] Routine 01/02/18 12:40 Consult to Occupational Therapy [OT Evaluation and Treatment] [CONS] Routine 01/02/18 20:00 Sodium Chloride 0.9% [Saline Flush] 10 ml FLUSH Q12HR 01/03/18 05:11 LEVETIRACETAM, S [REF] Routine OXCARBAZEPINE [REF] Routine 01/03/18 08:00 Lisinopril [Prinivil] 5 mg PO DAILY - Plan Plan:: 01-01-18 Pedrito Baer PA-C [facility] treatment of LLE Cellulitis. Just this morning patient and staff noticed redness, swelling and pain to LLE which has worsened rapidly throughout the day. White count markedly elevated at 24,200 with 95% segs on a manual differential. Patient has had a chronic left heel ulcer, the healing of which has been significantly negatively impacted by his persistent refusal to remove the leg brace, shoes and socks. He wears the leg brace because of hemiplegia secondary to CVA. 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 Consulted Dr. Saleh at the time of admit. Starting IV Vancomycin and Clindamycin after blood cultures drawn. This complex patient will require at least 96 hours of IP treatment, then hopefully will have improved to the point we can transfer back to [facility]. 01/02/18 Delfino Oleary MD Maybe a little bit better. WBC and CRP still significantly elevated but fever decreased and not chilling. Continue IV antibiotics.
[2018-01-02] MEDS: atorvaSTATin 10 MG Tab PO SCH (17:41)
[2018-01-02] MEDS: Sodium Chloride 0.9% 10 ML Syringe FLUSH SCH (19:03)
[2018-01-02] MEDS: Sodium Chloride 0.9% 10 ML Syringe FLUSH PRN (20:01)
[2018-01-03] MEDS: Sodium Chloride 0.9% 10 ML Syringe FLUSH PRN ×2 (00:29→06:28)
[2018-01-03] MEDS: Clindamycin Phosphate 600 MG in Sodium Chloride 0.9% 100 ML IV SCH ×2 (00:29→08:52)
[2018-01-03 06:00] LABS: CHLORIDE,CL 107 mmol/L (98-107); SODIUM,NA 141 mmol/L (136-145)
[2018-01-03] MEDS ORDERED: Lisinopril 5 MG Tab PO SCH (08:00)
[2018-01-03] MEDS: Donepezil 10 MG Tab PO SCH (08:47)
[2018-01-03] MEDS: Terbinafine 250 MG Tab PO SCH (08:47)
[2018-01-03] MEDS: OXcarbazepine 300 MG Tab PO SCH (08:48)
[2018-01-03] MEDS: Aspirin 325 MG Tab.EC PO SCH (08:48)
[2018-01-03] MEDS: levETIRAcetam 500 MG Tab PO SCH (08:49)
[2018-01-03] MEDS: Multivitamin Tab PO SCH (08:51)
[2018-01-03] MEDS: Acetaminophen 325 MG Tab PO SCH (08:51)
[2018-01-03] MEDS: Sodium Chloride 0.9% 10 ML Syringe FLUSH SCH (08:52)
[2018-01-03] MEDS: Loratadine 10 MG Tab PO SCH (08:52)
--- NOTE | 2018-01-03 16:41 | PCM.PN ---
- General Info Date of Service: 01/03/18 Admission Dx/Problem (Free Text): Admission Diagnosis/Problem Admission Diagnosis/Problem Cellulitis LLE Cellulitis Functional Status: Reports: Pain Controlled - Review of Systems General: Reports: Weakness HEENT: Reports: No Symptoms Pulmonary: Reports: No Symptoms Cardiovascular: Reports: No Symptoms Gastrointestinal: Reports: No Symptoms Genitourinary: Reports: No Symptoms Musculoskeletal: Reports: Leg Pain (left) Skin: Reports: Other (redness, swelling LLE) Neurological: Reports: Pre-Existing Deficit Psychiatric: Reports: Other (poor judgement and insight) - Patient Data Vitals - Most Recent: Last Vital Signs Temp 99.9 F 01/03/18 15:55 Pulse 80 01/03/18 15:55 Resp 20 01/03/18 15:55 BP 119/58 L 01/03/18 15:55 Pulse Ox 95 01/03/18 15:55 Weight - Most Recent: 244 lb 8 oz I&O - Last 24 Hours: Intake & Output 01/03/18 01/03/18 01/03/18 06:59 14:59 22:59 Intake Total 300 895 Output Total 200 Balance 100 895 Lab Results Last 24 Hours: Laboratory Results - last 24 hr 01/03/18 01/03/18 01/03/18 Range/Units 05:40 05:40 05:40 WBC 13.4 H (4.0-10.2) K/uL RBC 4.37 (4.33-5.41) M/uL Hgb 13.6 (13.1-16.8) g/dL Hct 40.9 (39.0-49.0) % MCV 93.6 (84.0-98.0) fL MCH 31.1 (28.2-33.3) pg MCHC 33.3 (31.7-36.0) g/dL RDW 13.8 (11.2-14.1) % Plt Count 205 (150-350) K/uL Neut % (Auto) 83.3 H (45.0-80.0) % Lymph % (Auto) 7.3 L (10.0-50.0) % [place] % (Auto) 9.1 (2.0-14.0) % Eos % (Auto) 0.1 (0.0-5.0) % Baso % (Auto) 0.2 (0.0-2.0) % Neut # (Auto) 11.14 H (1.40-7.00) K/uL Lymph # (Auto) 0.97 (0.50-3.50) K/uL [place] # (Auto) 1.22 H (0.00-1.00) K/uL Eos # (Auto) 0.01 (0.00-0.50) K/uL Baso # (Auto) 0.03 (0.00-0.20) K/uL Sodium 141 (136-145) mmol/L Potassium 4.0 (3.5-5.1) mmol/L Chloride 107 (98-107) mmol/L Carbon Dioxide 23.1 (21.0-32.0) mmol/L BUN 15 (7-18) mg/dL Creatinine 0.98 (0.51-1.17) mg/dL Est Cr Clr Drug Dosing 71.39 mL/min Estimated GFR (MDRD) > 60 mL/min Glucose 126 H (74-106) mg/dL Calcium 9.3 (8.5-10.1) mg/dL Total Bilirubin 0.5 (0.2-1.0) mg/dL AST 52 H (15-37) U/L ALT 80 H (12-78) U/L Alkaline Phosphatase 186 H (46-116) IU/L C-Reactive Protein 16.6 H (<=0.9) mg/dL Total Protein 6.8 (6.4-8.2) g/dL Albumin 2.7 L (3.4-5.0) g/dL Vancomycin Trough 11.7 (10-20) ug/mL Curt Results Last 24 Hours: Microbiology 01/01/18 16:13 Aerobic Blood Culture - Preliminary Blood - Venous - Lab Draw NO GROWTH AFTER 2 DAYS Anaerobic Blood Culture - Preliminary NO GROWTH AFTER 2 DAYS 01/01/18 16:05 Aerobic Blood Culture - Preliminary Blood - Venous NO GROWTH AFTER 2 DAYS Anaerobic Blood Culture - Preliminary NO GROWTH AFTER 2 DAYS Med Orders - Current: Current Medications Acetaminophen (Tylenol) 650 mg PO Q4H PRN PRN Reason: Pain Last Admin: 01/01/18 22:09 Dose: 650 mg Acetaminophen (Tylenol) 650 mg PO BID [facility] Last Admin: 01/03/18 08:51 Dose: 650 mg Artificial Tears (Liquitears 1.4% Ophth Soln) 0 ml EYEBOTH QID PRN PRN Reason: DRY EYES Aspirin (Ecotrin) 325 mg PO DAILY [facility] Last Admin: 01/03/18 08:48 Dose: 325 mg Atorvastatin Calcium (Lipitor) 10 mg PO DAILY@1800 [facility] Last Admin: 01/02/18 17:41 Dose: 10 mg Calamine/Phenol (Calmoseptine) 0 gm TOP BID PRN PRN Reason: Itching Donepezil HCl (Aricept) 10 mg PO DAILY [facility] Last Admin: 01/03/18 08:47 Dose: 10 mg Clindamycin Phosphate 600 mg/ (Sodium Chloride) 104 mls @ 200 mls/hr IV Q8H [facility] Last Admin: 01/03/18 08:52 Dose: 200 mls/hr Vancomycin HCl 1.5 gm/ Sodium (Chloride) 250 mls @ 125 mls/hr IV Q12H [facility] Last Admin: 01/03/18 06:27 Dose: 125 mls/hr Levetiracetam (Keppra) 1,500 mg PO BID [facility] Last Admin: 01/03/18 08:49 Dose: 1,500 mg Lisinopril (Prinivil) 5 mg PO DAILY [facility] Last Admin: 01/03/18 08:50 Dose: 5 mg Loratadine (Claritin) 10 mg PO DAILY [facility] Last Admin: 01/03/18 08:52 Dose: 10 mg Lorazepam (Ativan) 0.5 mg IM DAILY PRN PRN Reason: Seizure lasting > 5 minutes Multivitamins/Minerals/Vitamin C (Tab-A-Johnny) 1 tab PO DAILY [facility] Last Admin: 01/03/18 08:51 Dose: 1 tab Oxcarbazepine (Trileptal) 450 mg PO BID [facility] Last Admin: 01/03/18 08:48 Dose: 450 mg Sodium Chloride (Saline Flush) 10 ml FLUSH ASDIRECTED PRN PRN Reason: Keep Vein Open Last Admin: 01/03/18 06:28 Dose: 10 ml Sodium Chloride (Saline Flush) 10 ml FLUSH Q12HR [facility] Last Admin: 01/03/18 08:52 Dose: 10 ml Terbinafine HCl (Lamisil) 250 mg PO DAILY [facility] Last Admin: 01/03/18 08:47 Dose: 250 mg Trolamine Salicylate (Aspercreme 10%) 0 gm TOP Q4H PRN PRN Reason: PAIN Vancomycin HCl (Pharmacy To Dose - Vancomycin) 1 dose .XX ASDIRECTED [facility] Discontinued Medications Sodium Chloride (Normal Saline) 1,000 mls @ 70 mls/hr IV ASDIRECTED [facility] Last Admin: 01/01/18 23:58 Dose: 70 mls/hr Ketorolac Tromethamine (Toradol) 30 mg IVPUSH ONETIME ONE Stop: 01/01/18 23:33 Last Admin: 01/01/18 23:57 Dose: 30 mg Lisinopril (Prinivil) 10 mg PO DAILY [facility] Last Admin: 01/02/18 08:59 Dose: 10 mg Miconazole (Miconazole 2% Crm) 1 gm TOP BID PRN PRN Reason: Athletes foot - Exam Quality Assessment: Skin Breakdown (LLE) General: Alert, No Acute Distress HEENT: Mucous Membr. Moist/[place], Other (facial asymetry) Neck: Trachea Midline, No JVD Lungs: Clear to Auscultation, Normal Respiratory Effort Cardiovascular: Regular Rate, Regular Rhythm GI/Abdominal Exam: Soft, Non-Tender (Male) Exam: Deferred Back Exam: Normal Inspection Extremities: Leg Pain (LLE), Limited Range of Motion (LLE), Redness (LLE) Skin: Other (weeping through skin LLE, redness, warmth, and swelling LLE) Neurological: Other (pre-existing deficit, left foot drop) Psy/Mental Status: Alert, Other (will not listen to reasoning or logic) - Problem List & Annotations (1) Cellulitis and abscess of left leg SNOMED Code(s): 348681053 Code(s): L03.116 - CELLULITIS OF LEFT LOWER LIMB; L02.416 - CUTANEOUS ABSCESS OF LEFT LOWER LIMB Status: Acute Priority: High Current Visit: Yes (2) CVA, old, ataxia SNOMED Code(s): 40191166117652 Code(s): I69.993 - ATAXIA FOLLOWING UNSPECIFIED CEREBROVASCULAR DISEASE Status: Acute Priority: High Current Visit: No (3) Fever SNOMED Code(s): 858485502 Code(s): R50.9 - FEVER, UNSPECIFIED Status: Acute Priority: High Current Visit: No Qualifiers: Encounter type: initial encounter (4) Normal pressure hydrocephalus SNOMED Code(s): 28012588 Code(s): G91.2 - (IDIOPATHIC) NORMAL PRESSURE HYDROCEPHALUS Status: Acute Priority: High Current Visit: No (5) Seizure disorder SNOMED Code(s): 536957162 Code(s): G40.909 - EPILEPSY, UNSP, NOT INTRACTABLE, WITHOUT STATUS EPILEPTICUS Status: Acute Priority: Low Current Visit: No (6) COPD (chronic obstructive pulmonary disease) SNOMED Code(s): 51737914 Code(s): J44.9 - CHRONIC OBSTRUCTIVE PULMONARY DISEASE, UNSPECIFIED Status : Chronic Priority: Medium Current Visit: No Qualifiers: COPD type: COPD with acute lower respiratory infection Qualified Code(s): J44.0 - Chronic obstructive pulmonary disease with acute lower respiratory infection Annotation/Comment:: Stable by patient history with no current medical therapy, however nebulizer treatments during this hospitalization secondary to possible borderline aspiration pneumonia (7) Caries SNOMED Code(s): 43507352 Code(s): K02.9 - DENTAL CARIES, UNSPECIFIED Status: Chronic Priority: Medium Current Visit: No Annotation/Comment:: Dental evaluation and treatment advisable (8) Elevated LFTs SNOMED Code(s): 429210198, 461071211 Code(s): R79.89 - OTHER SPECIFIED ABNORMAL FINDINGS OF BLOOD CHEMISTRY Status: Chronic Priority: Medium Current Visit: No Annotation/Comment:: Possibly secondary to fatty liver and/or previous history of alcohol abuse. 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 No change in neurological status with previous history of recurrent falls , etc. (10) History of MRSA infection SNOMED Code(s): 388982318, 986876510 Code(s): Z86.14 - PERSONAL HISTORY OF METHICILLIN RESIS STAPH INFECTION Status: Chronic Current Visit: No Annotation/Comment:: History of MRSA infection with current retirement placement. Standard MRSA culture orders on admission (11) Hyperlipidemia SNOMED Code(s): 26982536 Code(s): E78.5 - HYPERLIPIDEMIA, UNSPECIFIED Status: Chronic Priority: Medium Current Visit: No Qualifiers: Hyperlipidemia type: mixed hyperlipidemia Qualified Code(s): E78.2 - Mixed hyperlipidemia Annotation/Comment:: Lipid panel in a.m. (12) Hypertension SNOMED Code(s): 76889472 Code(s): I10 - ESSENTIAL (PRIMARY) HYPERTENSION Status: Chronic Priority : Medium Current Visit: No Qualifiers: Hypertension type: essential hypertension Qualified Code(s): I10 - Essential (primary) hypertension Annotation/Comment:: Pressures under good control in the emergency room (13) Mixed anxiety depressive disorder SNOMED Code(s): 469297162 Code(s): F41.8 - OTHER SPECIFIED ANXIETY DISORDERS Status: Chronic Priority: Medium Current Visit: No Annotation/Comment:: Stable by patient history. 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 Stable by history (15) Osteoarthritis SNOMED Code(s): 398222346 Code(s): M19.90 - UNSPECIFIED OSTEOARTHRITIS, UNSPECIFIED SITE Status: Chronic Priority: Medium Current Visit: No Qualifiers: Osteoarthritis location: multiple joints Osteoarthritis type: primary Qualified Code(s): M15.0 - Primary generalized (osteo)arthritis Annotation/Comment:: Stable by history (16) Peptic reflux disease SNOMED Code(s): 226673214 Code(s): K21.9 - GASTRO-ESOPHAGEAL REFLUX DISEASE WITHOUT ESOPHAGITIS Status: Chronic Priority: Medium Current Visit: No Annotation/Comment:: Stable by history with high-dose IV Pepcid and IV Protonix given in the emergency room - Problem List Review Problem List Initiated/Reviewed/Updated: Yes - My Orders Last 24 Hours: My Active Orders 01/02/18 16:01 Venous Doppler Lwr Ext Lt [US] Urgent 01/02/18 20:00 Sodium Chloride 0.9% [Saline Flush] 10 ml FLUSH Q12HR 01/03/18 05:40 LEVETIRACETAM, S [REF] Routine OXCARBAZEPINE [REF] Routine 01/03/18 08:00 Lisinopril [Prinivil] 5 mg PO DAILY 01/03/18 16:22 CULTURE WOUND [RM] Routine 01/05/18 17:30 VANCOMYCIN TROUGH [CHEM] Routine - Plan Plan:: 01-01-18 Pedrito Baer PA-C Admitting to IP status for acute treatment of LLE Cellulitis. Just this morning patient and staff noticed redness, swelling and pain to LLE which has worsened rapidly throughout the day. White count markedly elevated at 24,200 with 95% segs on a manual differential. Patient has had a chronic left heel ulcer, the healing of which has been significantly negatively impacted by his persistent refusal to remove the leg brace, shoes and socks. He wears the leg brace because of hemiplegia secondary to CVA. Just yesterday did see Dr. Day, Technical Project Lead. Consulted Dr. Saleh at the time of admit. Starting IV Vancomycin and Clindamycin after blood cultures drawn. This complex patient will require at least 96 hours of IP treatment, then hopefully will have improved to the point we can transfer back to [facility]. 01/02/18 Delfino Oleary MD Maybe a little bit better. WBC and CRP still significantly elevated but fever decreased and not chilling. Continue IV antibiotics. 01/03/18 Delfino Oleary MD Labs improving but leg clinically worse. Fly and Venita wondering if he should go to [facility] in [place] since leg is clinically worse. Venous doppler done yesterday is negative for DVT. I called [facility] and talked with Claudia and Dr. Handy. Dr. Handy does accept him for transfer today.
--- NOTE | 2018-01-03 16:44 | PCM.DCSUM1 ---
Discharge Summary - Hospital Course Diagnosis: Stroke: No - Discharge Data Discharge Date: 01/03/18 Discharge Disposition: DC/Tfer to Acute Hospital 02 Condition: Good - Discharge Diagnosis/Problem(s) (1) Cellulitis and abscess of left leg SNOMED Code(s): 004410920 ICD Code: L03.116 - CELLULITIS OF LEFT LOWER LIMB; L02.416 - CUTANEOUS ABSCESS OF LEFT LOWER LIMB Status: Acute Priority: High Current Visit: Yes (2) CVA, old, ataxia SNOMED Code(s): 07257806333636 ICD Code: I69.993 - ATAXIA FOLLOWING UNSPECIFIED CEREBROVASCULAR DISEASE Status: Acute Priority: High Current Visit: No (3) Fever SNOMED Code(s): 621286897 ICD Code: R50.9 - FEVER, UNSPECIFIED Status: Acute Priority: High Current Visit: No Qualifiers: Encounter type: initial encounter (4) Normal pressure hydrocephalus SNOMED Code(s): 12665113 ICD Code: G91.2 - (IDIOPATHIC) NORMAL PRESSURE HYDROCEPHALUS Status: Acute Priority: High Current Visit: No (5) Seizure disorder SNOMED Code(s): 027923780 ICD Code: G40.909 - EPILEPSY, UNSP, NOT INTRACTABLE, WITHOUT STATUS EPILEPTICUS Status: Acute Priority: Low Current Visit: No (6) COPD (chronic obstructive pulmonary disease) SNOMED Code(s): 09784001 ICD Code: J44.9 - CHRONIC OBSTRUCTIVE PULMONARY DISEASE, UNSPECIFIED Status : Chronic Priority: Medium Current Visit: No Problem Details: Stable by patient history with no current medical therapy, however nebulizer treatments during this hospitalization secondary to possible borderline aspiration pneumonia Qualifiers: COPD type: COPD with acute lower respiratory infection Qualified Code(s): J44.0 - Chronic obstructive pulmonary disease with acute lower respiratory infection (7) Caries SNOMED Code(s): 87616399 ICD Code: K02.9 - DENTAL CARIES, UNSPECIFIED Status: Chronic Priority: Medium Current Visit: No Problem Details: Dental evaluation and treatment advisable (8) Elevated LFTs SNOMED Code(s): 295115471, 823517771 ICD Code: R79.89 - OTHER SPECIFIED ABNORMAL FINDINGS OF BLOOD CHEMISTRY Status: Chronic Priority: Medium Current Visit: No Problem Details: Possibly secondary to fatty liver and/or previous history of alcohol abuse. Further workup depending on his clinical course (9) Hemiparesis SNOMED Code(s): 39449800 ICD Code: G81.90 - HEMIPLEGIA, UNSPECIFIED AFFECTING UNSPECIFIED SIDE Status: Chronic Priority: Medium Current Visit: No Problem Details: Distant CVA with chronic left hemiparesis and previous as above. No change in neurological status with previous history of recurrent falls, etc. 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 Standard MRSA culture orders on admission (11) Hyperlipidemia SNOMED Code(s): 75391079 ICD Code: E78.5 - HYPERLIPIDEMIA, UNSPECIFIED Status: Chronic Priority: Medium Current Visit: No Problem Details: Lipid panel in a.m. Qualifiers: Hyperlipidemia type: mixed hyperlipidemia Qualified Code(s): E78.2 - Mixed hyperlipidemia (12) Hypertension SNOMED Code(s): 71255196 ICD Code: I10 - ESSENTIAL (PRIMARY) HYPERTENSION Status: Chronic Priority : Medium Current Visit: No Problem Details: Pressures under good control in the emergency room Qualifiers: Hypertension type: essential hypertension Qualified Code(s): I10 - Essential (primary) hypertension (13) Mixed anxiety depressive disorder SNOMED Code(s): 241517250 ICD Code: F41.8 - OTHER SPECIFIED ANXIETY DISORDERS Status: Chronic Priority: Medium Current Visit: No Problem Details: Stable by patient history. 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 Stable by history (15) Osteoarthritis SNOMED Code(s): 667314650 ICD Code: M19.90 - UNSPECIFIED OSTEOARTHRITIS, UNSPECIFIED SITE Status: Chronic Priority: Medium Current Visit: No Problem Details: Stable by history Qualifiers: Osteoarthritis location: multiple joints Osteoarthritis type: primary Qualified Code(s): M15.0 - Primary generalized (osteo)arthritis (16) Peptic reflux disease SNOMED Code(s): 757244934 ICD Code: K21.9 - GASTRO-ESOPHAGEAL REFLUX DISEASE WITHOUT ESOPHAGITIS Status: Chronic Priority: Medium Current Visit: No Problem Details: Stable by history with high-dose IV Pepcid and IV Protonix given in the emergency room - Patient Summary/Data Consults: Consultations 01/01/18 16:14 Pharmacy Consult [Consult to Pharmacy] [CONS] Routine 01/02/18 12:39 Consult to Physical Therapy [PT Evaluation and Treatment] [CONS] Routine 01/02/18 12:40 Consult to Occupational Therapy [OT Evaluation and Treatment] [CONS] Routine - Patient Instructions Diet: Regular Diet as Tolerated Activity: Bedrest, May Use Bathroom Driving: Do Not Drive Showering/Bathing: May Shower - Discharge Plan *PRESCRIPTION DRUG MONITORING PROGRAM REVIEWED*: Not Applicable *COPY OF PRESCRIPTION DRUG MONITORING REPORT IN PATIENT KILEY: Not Applicable ( Transferring to [facility] floor to Dr. Handy. Transfer per ambulance BLS) Home Medications: Home Meds Acetaminophen 650 mg PO Q4H PRN 08/21/17 [History] Acetaminophen [Tylenol] 650 mg PO BID@08/21/17 [History] Aspirin [Ecotrin] 325 mg PO DAILY 08/21/17 [History] Dextran 70/Hypromellose [Artificial Tears] 2 drop EYEBOTH QID PRN 08/21/17 [ History] Donepezil HCl [Aricept] 10 mg PO DAILY 08/21/17 [History] LORazepam [Ativan] 0.5 mg IM DAILY PRN 08/21/17 [History] Lisinopril 10 mg PO DAILY 08/21/17 [History] Loratadine [Claritin] 10 mg PO DAILY 08/21/17 [History] Menthol/Zinc Oxide [Calmoseptine] 1 applic TOP BID PRN 08/21/17 [History] Miconazole Nitrate [Athlete's Foot] 1 applic TOP BID PRN 08/21/17 [History] Multivitamin [Daily Multiple Vitamin] 1 tab PO DAILY 08/21/17 [History] OXcarbazepine [Trileptal] 450 mg PO BID@08/21/17 [History] Trolamine Salicylate [Asper-Flex] 1 applic TOP Q4H PRN 08/21/17 [History] atorvaSTATin [Lipitor] 10 mg PO DAILY@1800 08/21/17 [History] levETIRAcetam [Keppra] 1,500 mg PO BID@08/21/17 [History] Terbinafine HCl 250 mg PO DAILY 01/01/18 [History] Patient Handouts: Clindamycin injection, Fever, Adult, Cellulitis, Adult, Vancomycin injection - Discharge Summary/Plan Comment DC Time >30 min.: No - Patient Data Vitals - Most Recent: Last Vital Signs Temp 99.9 F 01/03/18 15:55 Pulse 80 01/03/18 15:55 Resp 20 01/03/18 15:55 BP 119/58 L 01/03/18 15:55 Pulse Ox 95 01/03/18 15:55 Weight - Most Recent: 244 lb 8 oz I&O - Last 24 hours: Intake & Output 01/03/18 01/03/18 01/03/18 06:59 14:59 22:59 Intake Total 300 895 Output Total 200 Balance 100 895 Lab Results - Last 24 hrs: Laboratory Results - last 24 hr 01/03/18 01/03/18 01/03/18 Range/Units 05:40 05:40 05:40 WBC 13.4 H (4.0-10.2) K/uL RBC 4.37 (4.33-5.41) M/uL Hgb 13.6 (13.1-16.8) g/dL Hct 40.9 (39.0-49.0) % MCV 93.6 (84.0-98.0) fL MCH 31.1 (28.2-33.3) pg MCHC 33.3 (31.7-36.0) g/dL RDW 13.8 (11.2-14.1) % Plt Count 205 (150-350) K/uL Neut % (Auto) 83.3 H (45.0-80.0) % Lymph % (Auto) 7.3 L (10.0-50.0) % [place] % (Auto) 9.1 (2.0-14.0) % Eos % (Auto) 0.1 (0.0-5.0) % Baso % (Auto) 0.2 (0.0-2.0) % Neut # (Auto) 11.14 H (1.40-7.00) K/uL Lymph # (Auto) 0.97 (0.50-3.50) K/uL [place] # (Auto) 1.22 H (0.00-1.00) K/uL Eos # (Auto) 0.01 (0.00-0.50) K/uL Baso # (Auto) 0.03 (0.00-0.20) K/uL Sodium 141 (136-145) mmol/L Potassium 4.0 (3.5-5.1) mmol/L Chloride 107 (98-107) mmol/L Carbon Dioxide 23.1 (21.0-32.0) mmol/L BUN 15 (7-18) mg/dL Creatinine 0.98 (0.51-1.17) mg/dL Est Cr Clr Drug Dosing 71.39 mL/min Estimated GFR (MDRD) > 60 mL/min Glucose 126 H (74-106) mg/dL Calcium 9.3 (8.5-10.1) mg/dL Total Bilirubin 0.5 (0.2-1.0) mg/dL AST 52 H (15-37) U/L ALT 80 H (12-78) U/L Alkaline Phosphatase 186 H (46-116) IU/L C-Reactive Protein 16.6 H (<=0.9) mg/dL Total Protein 6.8 (6.4-8.2) g/dL Albumin 2.7 L (3.4-5.0) g/dL Vancomycin Trough 11.7 (10-20) ug/mL [facility]ASNE[facility] Results - Last 24 hrs: Microbiology 01/01/18 16:13 Aerobic Blood Culture - Preliminary Blood - Venous - Lab Draw NO GROWTH AFTER 2 DAYS Anaerobic Blood Culture - Preliminary NO GROWTH AFTER 2 DAYS 01/01/18 16:05 Aerobic Blood Culture - Preliminary Blood - Venous NO GROWTH AFTER 2 DAYS Anaerobic Blood Culture - Preliminary NO GROWTH AFTER 2 DAYS Med Orders - Current: Current Medications Acetaminophen (Tylenol) 650 mg PO Q4H PRN PRN Reason: Pain Last Admin: 01/01/18 22:09 Dose: 650 mg Acetaminophen (Tylenol) 650 mg PO BID [facility] Last Admin: 08/31/18 08:51 Dose: 650 mg Artificial Tears (Liquitears 1.4% Ophth Soln) 0 ml EYEBOTH QID PRN PRN Reason: DRY EYES Aspirin (Ecotrin) 325 mg PO DAILY [facility] Last Admin: 01/03/18 08:48 Dose: 325 mg Atorvastatin Calcium (Lipitor) 10 mg PO DAILY@1800 [facility] Last Admin: 01/02/18 17:41 Dose: 10 mg Calamine/Phenol (Calmoseptine) 0 gm TOP BID PRN PRN Reason: Itching Donepezil HCl (Aricept) 10 mg PO DAILY [facility] Last Admin: 01/03/18 08:47 Dose: 10 mg Clindamycin Phosphate 600 mg/ (Sodium Chloride) 104 mls @ 200 mls/hr IV Q8H [facility] Last Admin: 01/03/18 08:52 Dose: 200 mls/hr Vancomycin HCl 1.5 gm/ Sodium (Chloride) 250 mls @ 125 mls/hr IV Q12H [facility] Last Admin: 01/03/18 06:27 Dose: 125 mls/hr Levetiracetam (Keppra) 1,500 mg PO BID [facility] Last Admin: 01/03/18 08:49 Dose: 1,500 mg Lisinopril (Prinivil) 5 mg PO DAILY [facility] Last Admin: 01/03/18 08:50 Dose: 5 mg Loratadine (Claritin) 10 mg PO DAILY [facility] Last Admin: 01/03/18 08:52 Dose: 10 mg Lorazepam (Ativan) 0.5 mg IM DAILY PRN PRN Reason: Seizure lasting > 5 minutes Multivitamins/Minerals/Vitamin C (Tab-A-Johnny) 1 tab PO DAILY [facility] Last Admin: 01/03/18 08:51 Dose: 1 tab Oxcarbazepine (Trileptal) 450 mg PO BID [facility] Last Admin: 01/03/18 08:48 Dose: 450 mg Sodium Chloride (Saline Flush) 10 ml FLUSH ASDIRECTED PRN PRN Reason: Keep Vein Open Last Admin: 01/03/18 06:28 Dose: 10 ml Sodium Chloride (Saline Flush) 10 ml FLUSH Q12HR [facility] Last Admin: 01/03/18 08:52 Dose: 10 ml Terbinafine HCl (Lamisil) 250 mg PO DAILY [facility] Last Admin: 01/03/18 08:47 Dose: 250 mg Trolamine Salicylate (Aspercreme 10%) 0 gm TOP Q4H PRN PRN Reason: PAIN Vancomycin HCl (Pharmacy To Dose - Vancomycin) 1 dose .XX ASDIRECTED [facility] Discontinued Medications Sodium Chloride (Normal Saline) 1,000 mls @ 70 mls/hr IV ASDIRECTED [facility] Last Admin: 01/01/18 23:58 Dose: 70 mls/hr Ketorolac Tromethamine (Toradol) 30 mg IVPUSH ONETIME ONE Stop: 01/01/18 23:33 Last Admin: 01/01/18 23:57 Dose: 30 mg Lisinopril (Prinivil) 10 mg PO DAILY [facility] Last Admin: 01/02/18 08:59 Dose: 10 mg Miconazole (Miconazole 2% Crm) 1 gm TOP BID PRN PRN Reason: Athletes foot
== END 2018-01-03 18:00 | DRG 602 ==
LOC: LL.MS 15:39 → UNDOADMIN 15:39 → LL.MS 15:57
PROVIDERS: ADMIT Physician Assistant; ATTEND Family Medicine
DX: L03.116 Cellulitis of left lower limb (principal); J69.0 Pneumonitis due to inhalation of food and vomit; G91.2 (Idiopathic) normal pressure hydrocephalus; I69.354 Hemiplegia and hemiparesis following cerebral infarction affecting left non-dominant side; L97.429 Non-pressure chronic ulcer of left heel and midfoot with unspecified severity; L02.416 Cutaneous abscess of left lower limb; I69.393 Ataxia following cerebral infarction; G40.909 Epilepsy, unspecified, not intractable, without status epilepticus; J44.9 Chronic obstructive pulmonary disease, unspecified; K02.9 Dental caries, unspecified; R79.89 Other specified abnormal findings of blood chemistry; E78.2 Mixed hyperlipidemia; F41.8 Other specified anxiety disorders; M15.9 Polyosteoarthritis, unspecified; K21.9 Gastro-esophageal reflux disease without esophagitis; F09 Unspecified mental disorder due to known physiological condition; H54.7 Unspecified visual loss; E78.00 Pure hypercholesterolemia, unspecified; J84.10 Pulmonary fibrosis, unspecified; N40.0 Benign prostatic hyperplasia without lower urinary tract symptoms; I12.9 Hypertensive chronic kidney disease with stage 1 through stage 4 chronic kidney disease, or unspecified chronic kidney disease; N18.9 Chronic kidney disease, unspecified; G89.29 Other chronic pain; M54.9 Dorsalgia, unspecified; G30.9 Alzheimer's disease, unspecified; F02.80 Dementia in other diseases classified elsewhere, unspecified severity, without behavioral disturbance, psychotic disturbance, mood disturbance, and anxiety; Z98.2 Presence of cerebrospinal fluid drainage device; Z87.440 Personal history of urinary (tract) infections; Z88.6 Allergy status to analgesic agent; Z88.0 Allergy status to penicillin; Z88.8 Allergy status to other drugs, medicaments and biological substances; Z79.899 Other long term (current) drug therapy; Z86.010 Personal history of colon polyps; Z86.14 Personal history of Methicillin resistant Staphylococcus aureus infection; Z79.82 Long term (current) use of aspirin; Z91.19 Patient's noncompliance with other medical treatment and regimen
CPT/HCPCS: 36415; 80053; 80177; 80183; 80202; 85025; 86140; 87040; 87070; 87077; 87186; 93971; 97110-GP; 97112-GP; 97161-GP; A9270-GY; J1885; J3370; J3490; J7030; J7050